=== PATIENT | female | born 1945 | race Caucasian/White ===

== ENCOUNTER 2016-10-29 08:09 | Emergency (ER) | payer OTHER, MEDICARE, BC ==
--- NOTE | 2016-10-29 08:14 | EDM.PDOC ---
ED HPI Trauma - General Chief Complaint: Trauma Stated Complaint: [id number] FELL AT WORK SCRAPED NOSE AND HAND Time Seen by Provider: 10/29/16 08:13 Source: Reports: Patient, Old records, RN, RN notes reviewed History Limitations: Reports: No limitations - History of Present Illness INITIAL COMMENTS - FREE TEXT/NARRATIVE: Arrives by POV with c/o fell at work and scraped nose, and left hand and wrist. Also c/o left rib pain, and has a small bruise on left knee. Denies LOC, N/V, or headache. Denies neck or back pain. Pt states that she slipped or tripped on concrete at work and fell to the ground. Denies any other injury(s). Last tetanus vaccine unknown, but believed to be >10yrs ago. Symptom Onset Date: 10/29/16 Occurred When: just prior to arrival Occurred Where: work Method of Injury: fall Pain/Injury Location: Reports: face, chest, upper extremity, left Consciousness: Reports: no loss of consciousness, remembers incident Associated Symptoms: Reports: no other symptoms Allergies/ADRs: Allergies Anesthetics - Sabrina Type- Parabens [Anesthetics - Sabrina Type] Allergy (Mild, Verified 04/25/16 15:40) Nausea ciprofloxacin [From Cipro] Allergy (Unknown, Verified 04/25/16 15:40) Nausea ciprofloxacin HCl [From Cipro] Allergy (Unknown, Verified 04/25/16 15:40) Nausea erythromycin base [Erythromycin Base] Allergy (Unknown, Verified 04/25/16 15:40) unknown fluticasone propionate [From Flonase] Allergy (Unknown, Verified 04/25/16 15:40) Difficulty Breathing indomethacin Allergy (Unknown, Verified 04/25/16 15:40) unknown Penicillins Allergy (Unknown, Verified 04/25/16 15:40) Hives permethrin [From Elimite] Allergy (Unknown, Verified 04/25/16 15:40) Rash simvastatin [From Zocor] Allergy (Unknown, Verified 04/25/16 15:40) Leg Cramps Sulfa (Sulfonamide Antibiotics) Allergy (Unknown, Verified 04/25/16 15:40) unknown sulfamethoxazole [From Bactrim] Allergy (Unknown, Verified 04/25/16 15:40) unknown trimethoprim [From Bactrim] Allergy (Unknown, Verified 04/25/16 15:40) unknown levofloxacin [From Levaquin] Allergy (Verified 04/25/16 15:40) Chest Pain Anesthetics - Amide Type Adverse Reaction (Mild, Verified 04/25/16 15:40) Nausea Home Medications: Ambulatory Orders Calcium Carbonate [Calcium] 600 mg PO DAILY 08/04/13 [Confirmed 10/29/16] Estrogens, Conjugated [Premarin Vaginal Crm] 1 squirt VAG .2TIMESWEEK 08/04/13 [ Confirmed 10/29/16] Levothyroxine Sodium [Synthroid] 0.88 mcg PO DAILY 08/04/13 [Confirmed 10/29/16] Lutein/Minerals/Vit A,C & E [I-Mary] 1 each PO BID 08/04/13 [Confirmed 10/29/16] Multivitamin [Multi Vitamin Daily] 1 each PO DAILY 08/04/13 [Confirmed 10/29/16] Warfarin [Coumadin] 2.5 mg PO ASDIRECTED 08/04/13 [Confirmed 10/29/16] Warfarin [Coumadin] 5 mg PO ASDIRECTED 08/04/13 [Confirmed 10/29/16] atorvaSTATin [Lipitor] 20 mg PO BEDTIME 08/04/13 [Confirmed 10/29/16] Calcium Carbonate [Tums] 2 tab PO ASDIRECTED PRN 09/26/15 [Confirmed 10/29/16] Amiodarone HCl [Amiodarone HCl] 200 mg PO DAILY 10/29/16 [Confirmed 10/29/16] Sertraline [Zoloft] 25 mg PO DAILY 10/29/16 [Confirmed 10/29/16] Past Medical History HEENT History: Reports: Impaired vision, Macular degeneration Cardiovascular History: Reports: Blood clots/VTE/DVT, High cholesterol Respiratory History: Reports: None Gastrointestinal History: Reports: None, GERD Genitourinary History: Reports: Other (see below) Other Genitourinary History: Blood in urine today 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: Musculoskeletal History: Reports: Arthritis Neurological History: Reports: Migraines, TIA, Vertigo Psychiatric History: Reports: Anxiety, Panic attack Endocrine/Metabolic History: Reports: Hypothyroidism Hematologic History: Reports: None Immunologic History: Reports: None - Infectious Disease History Infectious Disease History: Reports: Chicken pox - Past Surgical History Female Surgical History: Reports: Breast biopsy, Hysterectomy Musculoskeletal Surgical History: Reports: Knee replacement Social & Family History - Family History Family Medical History: Noncontributory - Tobacco Use Smoking Status *Q: Former Smoker Years of Tobacco use: 40 Packs/Tins Daily: 2 Used Tobacco, but Quit: Yes Month Tobacco Last Used: october 2001 Second Hand Smoke Exposure: No - Alcohol Use Days Per Week of Alcohol Use: 1 Number of Drinks Per Day: 6 Total Drinks Per Week: 6 - Recreational Drug Use Recreational Drug Use: No - Living Situation & Occupation Occupation: employed Review of Systems - Review of Systems Review Of Systems: ROS reveals no pertinent complaints other than HPI. ED EXAM, TRAUMA (MAJOR/MULTI) - Physical Exam Exam: See Below Exam Limited By: No limitations General Appearance: alert, WD/WN, no apparent distress Head: normocephalic, facial abrasions (nose). No: scalp lacerations, scalp swelling, scalp abrasions, scalp ecchymosis, scalp hematoma, scalp tenderness, active bleeding, Dunham's Sign, facial lacerations, facial swelling, raccoon eyes Eyes: bilateral eye: EOMI, normal inspection, PERRL Ears: normal external exam, normal canal, hearing grossly normal, normal TMs. No: canal blood, canal discharge, TM blood, TM fluid Nose: No: nasal discharge, active bleeding Throat/Mouth: Normal teeth, Normal gums, Normal oropharynx, Normal voice, No airway compromise, Other (abrasion with bruise to inner lower lip). No: Dental tenderness, Dental trauma Neck: non-tender, full range of motion, normal alignment, normal inspection Cardiovascular: normal peripheral pulses, regular rate, rhythm, no edema Respiratory/Chest: no respiratory distress, lungs clear, normal breath sounds, no accessory muscle use, chest non-tender GI/Abdominal: normal bowel sounds, soft, non tender Back: full range of motion, normal inspection. No: CVA tenderness (R), CVA tenderness (L) Extremities: normal range of motion, pelvis stable, pain with movement (left wrist), tenderness (left wrist), other (small bruise to left anterior knee, skin intact, full ROM, and normal gait). 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, no motor/sensory deficits, alert, normal mood/affect, oriented x 3 Skin: Other (skin tear dorsum of left hand 4cm, multiple superficial abrasions to left hand, wrist, and forearm) Course - Vital Signs Last Recorded V/S: Last Vital Signs Temp 36.6 C 10/29/16 08:13 Pulse 66 10/29/16 08:13 Resp 16 10/29/16 08:13 BP 155/61 H 10/29/16 08:13 Pulse Ox 99 10/29/16 08:13 - Orders/Labs/Meds Orders: Active Orders 24 hr Category Date Time Status Vaccines to be Administered [RC] PER UNIT ROUTINE Care 10/29/16 08:30 Active Ribs 2V wo Chest Lt [CR] Urgent Exams 10/29/16 08:38 Ordered Wrist Comp Min 3V Lt [CR] Urgent Exams 10/29/16 08:36 Ordered Meds: Medications Discontinued Medications Generic Name Dose Route Start Last Admin Trade Name Freq PRN Reason Stop Dose Admin Bacitracin 1 dose 10/29/16 08:36 Bacitracin Oint 1 Gm TOP 10/29/16 08:37 ONETIME ONE Diphtheria/Tetanus/Acell Pertussis 0.5 ml 10/29/16 08:29 10/29/16 08:40 Adacel IM 10/29/16 08:30 0.5 ml .ONCE ONE Administration - Radiology Interpretation Free Text/Narrative:: Xray left wrist: no fracture, see Rad. report. Xray left ribs: no fracture, see Rad. report. CT Results Date: 10/29/16 - Re-Assessments/Exams Free Text/Narrative Re-Assessment/Exam: 10/29/16 09:03 Wounds cleansed, steri strips to left hand skin tear, bacitracin oint. to abrasions by RN. Departure - Departure Time of Disposition: 09:04 Disposition: Home, Self-Care 01 Condition: good Clinical Impression: Encounter for assessment of work-related causation of injury, Fall on same level as cause of accidental injury Abrasion of nose Qualifiers: Encounter type: initial encounter Qualified Code(s): S00.31XA - Abrasion of nose, initial encounter Lip abrasion Qualifiers: Encounter type: initial encounter Qualified Code(s): S00.511A - Abrasion of lip , initial encounter Skin tear of left hand without complication Qualifiers: Encounter type: initial encounter Qualified Code(s): S61.412A - Laceration without foreign body of left hand, initial encounter Abrasion of left upper extremity Qualifiers: Encounter type: initial encounter Qualified Code(s): S40.812A - Abrasion of left upper arm, initial encounter Contusion of left chest wall Qualifiers: Encounter type: initial encounter Qualified Code(s): S20.212A - Contusion of left front wall of thorax, initial encounter Contusion of left knee Qualifiers: Encounter type: initial encounter Qualified Code(s): S80.02XA - Contusion of left knee, initial encounter Instructions: Sterile Tape Wound Care, Abrasion, [id number], Contusion Forms: ED Department Discharge Additional Instructions: Use over the counter Bacitracin Zinc Ointment on skin abrasions. Activity as tolerated. Follow up in clinic in 4 to 5 days for recheck. - My Orders Last 24 Hours: My Active Orders 10/29/16 08:30 Vaccines to be Administered [RC] PER UNIT ROUTINE 10/29/16 08:36 Wrist Comp Min 3V Lt [CR] Urgent 10/29/16 08:38 Ribs 2V wo Chest Lt [CR] Urgent - Assessment/Plan Last 24 Hours: My Active Orders 10/29/16 08:30 Vaccines to be Administered [RC] PER UNIT ROUTINE 10/29/16 08:36 Wrist Comp Min 3V Lt [CR] Urgent 10/29/16 08:38 Ribs 2V wo Chest Lt [CR] Urgent
[2016-10-29] MEDS ORDERED: Diphtheria,Pertussis(Acell),Tetanus Vaccine 0.5 ML SDV IM ONE (08:29)
[2016-10-29 08:33] VITALS: BP 155/61
[2016-10-29] MEDS ORDERED: Bacitracin Oint 1 GM U/D Packet TOP ONE (08:36)
--- NOTE | 2016-10-29 10:50 | CR ---
CLINICAL HISTORY: 71-year-old female with left rib pain. INTERPRETATION: Mild dorsolumbar scoliosis, signs of multilevel disc disease and arthritis of the sp ine. Platelike atelectasis left lung base but no sign of lower left rib fracture, pleural effusion or pne umothorax.
--- NOTE | 2016-10-29 10:50 | CR ---
CLINICAL HISTORY: 71-year-old female with right wrist pain (fall). INTERPRETATION: Subtle lucent line radial styloid with sclerosis suggesting older injury. Chronic reactive arthritic changes first carpometacarpal, first metacarpophalangeal and all MCP/inte rphalangeal/DIP joints typical of arthritis (mild subluxation metacarpal joints). No sign of acute left wrist or hand fracture/dislocation.
== END 2016-10-29 09:30 | disposition home or self-care (01) ==
LOC: DL.ED 08:09
DX: S61.412A Laceration without foreign body of left hand, initial encounter (principal); S20.212A Contusion of left front wall of thorax, initial encounter; S80.02XA Contusion of left knee, initial encounter; S40.812A Abrasion of left upper arm, initial encounter; S00.511A Abrasion of lip, initial encounter; S00.31XA Abrasion of nose, initial encounter; E78.00 Pure hypercholesterolemia, unspecified; K21.9 Gastro-esophageal reflux disease without esophagitis; M19.90 Unspecified osteoarthritis, unspecified site; Z86.73 Personal history of transient ischemic attack (TIA), and cerebral infarction without residual deficits; F41.9 Anxiety disorder, unspecified; E03.9 Hypothyroidism, unspecified; Z23 Encounter for immunization; Z88.1 Allergy status to other antibiotic agents; Z88.0 Allergy status to penicillin; Z88.4 Allergy status to anesthetic agent; Z88.2 Allergy status to sulfonamides; Z88.8 Allergy status to other drugs, medicaments and biological substances; Z90.710 Acquired absence of both cervix and uterus; Z87.891 Personal history of nicotine dependence; W01.0XXA Fall on same level from slipping, tripping and stumbling without subsequent striking against object, initial encounter; Y99.0 Civilian activity done for income or pay
CPT/HCPCS: 71100-LT; 73110-LT; 90471; 90715; 99284

== ENCOUNTER 2016-11-20 21:52 | Emergency (ER) | payer MEDICARE, BC ==
[2016-11-20 22:05] VITALS: BP 153/80
--- NOTE | 2016-11-20 22:12 | EDM.PDOC ---
ED HPI HEADACHE COMPLAINT - General Chief Complaint: Headache Stated Complaint: HEADACHE Time Seen by Provider: 11/20/16 22:05 Source of Information: Reports: Patient History Limitations: Reports: No limitations - History of Present Illness INITIAL COMMENTS - FREE TEXT/NARRATIVE: 71 yo white female c/o frontal type headache and no relieved with [place] Symptom Onset Date: 11/20/16 Symptom Onset Time: 17:00 Timing/Duration: Reports: hour(s): Location: Reports: frontal Quality: Reports: pounding Severity: Reports: moderate Context: Reports: other (Pt. 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) (norco) - Related Data Allergies/ADRs: Allergies Allergy/AdvReac Type Severity Reaction Status Date / Time Anesthetics - Sabrina Type- Allergy Mild Nausea Verified 11/20/16 22:06 Parabens [Anesthetics - Sabrina Type] ciprofloxacin [From Cipro] Allergy Unknown Nausea Verified 11/20/16 22:06 ciprofloxacin HCl Allergy Unknown Nausea Verified 11/20/16 22:06 [From Cipro] erythromycin base Allergy Unknown unknown Verified 11/20/16 22:06 [Erythromycin Base] fluticasone propionate Allergy Unknown Difficulty Verified 11/20/16 22:06 [From Flonase] Breathing indomethacin Allergy Unknown unknown Verified 11/20/16 22:06 Penicillins Allergy Unknown Hives Verified 11/20/16 22:06 permethrin [From Elimite] Allergy Unknown Rash Verified 11/20/16 22:06 simvastatin [From Zocor] Allergy Unknown Leg Cramps Verified 11/20/16 22:06 Sulfa (Sulfonamide Allergy Unknown unknown Verified 11/20/16 22:06 Antibiotics) sulfamethoxazole Allergy Unknown unknown Verified 11/20/16 22:06 [From Bactrim] trimethoprim [From Bactrim] Allergy Unknown unknown Verified 11/20/16 22:06 levofloxacin [From Levaquin] Allergy Chest Pain Verified 11/20/16 22:06 Anesthetics - Amide Type AdvReac Mild Nausea Verified 11/20/16 22:06 Home Meds: Home Meds Calcium Carbonate [Calcium] 600 mg PO BID 08/04/13 [History] Estrogens, Conjugated [Premarin Vaginal Crm] 1 squirt VAG .2TIMESWEEK 08/04/13 [ History] Levothyroxine Sodium [Synthroid] 0.88 mcg PO DAILY 08/04/13 [History] Lutein/Minerals/Vit A,C & E [I-Mary] 1 each PO BID 08/04/13 [History] Multivitamin [Multi Vitamin Daily] 1 each PO DAILY 08/04/13 [History] Warfarin [Coumadin] 2.5 mg PO ASDIRECTED 08/04/13 [History] Warfarin [Coumadin] 5 mg PO ASDIRECTED 08/04/13 [History] atorvaSTATin [Lipitor] 20 mg PO BEDTIME 08/04/13 [History] Amiodarone HCl [Amiodarone HCl] 200 mg PO DAILY 10/29/16 [History] Sertraline [Zoloft] 25 mg PO DAILY 10/29/16 [History] Past Medical History HEENT History: Reports: Impaired vision, Macular degeneration Other HEENT History: wears glasses Cardiovascular History: Reports: Blood clots/VTE/DVT, High cholesterol Respiratory History: Reports: None Gastrointestinal History: Reports: None, GERD Genitourinary History: Reports: Other (see below) Other Genitourinary History: 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: Musculoskeletal History: Reports: Arthritis Neurological History: Reports: Migraines, TIA, Vertigo Psychiatric History: Reports: Anxiety, Panic attack Endocrine/Metabolic History: Reports: Hypothyroidism Hematologic History: Reports: None Immunologic History: Reports: None - Infectious Disease History Infectious Disease History: Reports: Chicken pox - Past Surgical History Female Surgical History: Reports: Breast biopsy, Hysterectomy Musculoskeletal Surgical History: Reports: Knee replacement Social & Family History - Family History Family Medical History: Noncontributory - Tobacco Use Smoking Status *Q: Former Smoker Years of Tobacco use: 40 Packs/Tins Daily: 2 Used Tobacco, but Quit: Yes Month Tobacco Last Used: october 2001 Second Hand Smoke Exposure: No - Caffeine Use Caffeine Use: Reports: None - Alcohol Use Days Per Week of Alcohol Use: 1 Number of Drinks Per Day: 6 Total Drinks Per Week: 6 - Recreational Drug Use Recreational Drug Use: No - Living Situation & Occupation Occupation: employed ED ROS GENERAL - Review of Systems Review Of Systems: See Below Constitutional: Reports: no symptoms HEENT: Reports: No symptoms Respiratory: Reports: No Symptoms Cardiovascular: Reports: No symptoms Endocrine: Reports: no symptoms GI/Abdominal: Reports: No symptoms : Reports: no symptoms Musculoskeletal: Reports: no symptoms Skin: Reports: no symptoms Neurological: Reports: Headache (frontal) Psychiatric: Reports: No symptoms Hematologic/Lymphatic: Reports: no symptoms Immunologic: Reports: no symptoms - Physical Exam Exam: See Below Exam Limited By: No limitations General Appearance: alert, WD/WN, no apparent distress, obese Eye Exam: bilateral eye: PERRL Ears: normal external exam Nose: normal inspection Throat/Mouth: Normal inspection, Normal lips Head Exam: atraumatic, normocephalic Neck: normal inspection, supple, non-tender, full range of motion Respiratory/Chest: no respiratory distress, lungs clear, normal breath sounds Cardiovascular: normal peripheral pulses, regular rate, rhythm GI/Abdominal: normal bowel sounds, soft, non tender (Female) Exam: Normal external exam Neuro Exam (Abbreviated): alert, oriented, CN II-XII intact, normal cognition, normal gait, normal reflexes Back Exam: normal inspection, full range of motion Extremities: normal inspection, normal range of motion, non-tender Psychiatric: normal affect, normal mood Skin Exam: Warm, Dry, Intact, Normal color Course - Vital Signs Last Recorded V/S: Last Vital Signs Temp 36.4 C 11/20/16 21:58 Pulse 65 11/20/16 21:58 Resp 16 11/20/16 21:58 BP 153/80 H 11/20/16 21:58 Pulse Ox 100 11/20/16 21:58 - Orders/Labs/Meds Meds: Medications Discontinued Medications Generic Name Dose Route Start Last Admin Trade Name Brettq PRN Reason Stop Dose Admin Cyclobenzaprine HCl 10 mg 11/20/16 22:16 11/20/16 22:20 Flexeril PO 11/20/16 22:17 10 mg ONETIME ONE Administration Ketorolac Tromethamine 10 mg 11/20/16 22:16 11/20/16 22:20 Toradol PO 11/20/16 22:17 10 mg ONETIME ONE Administration Departure - Departure Time of Disposition: 22:50 Disposition: Home, Self-Care 01 Condition: good Clinical Impression: Post-concussion headache Forms: ED Department Discharge Additional Instructions: Rest Try taking FIORICET Tab 1 every 4-6 hours as needed # 30 F/U w/ PCP
[2016-11-20] MEDS ORDERED: Cyclobenzaprine 10 MG Tab PO ONE (22:16)
[2016-11-20] MEDS ORDERED: Ketorolac 10 MG Tab PO ONE (22:16)
== END 2016-11-20 23:01 | disposition home or self-care (01) ==
LOC: DL.ED 21:52
DX: G44.309 Post-traumatic headache, unspecified, not intractable (principal); E78.00 Pure hypercholesterolemia, unspecified; K21.9 Gastro-esophageal reflux disease without esophagitis; G43.909 Migraine, unspecified, not intractable, without status migrainosus; M19.90 Unspecified osteoarthritis, unspecified site; E03.9 Hypothyroidism, unspecified; Z90.710 Acquired absence of both cervix and uterus; Z87.891 Personal history of nicotine dependence; Z88.8 Allergy status to other drugs, medicaments and biological substances; Z88.1 Allergy status to other antibiotic agents; Z88.0 Allergy status to penicillin; Z88.2 Allergy status to sulfonamides; Z79.01 Long term (current) use of anticoagulants; Z79.899 Other long term (current) drug therapy; W19.XXXD Unspecified fall, subsequent encounter
CPT/HCPCS: 99283; A9270

== ENCOUNTER 2017-05-27 12:09 | Emergency (ER) | payer MEDICARE, BC ==
[2017-05-27] MEDS ORDERED: Ondansetron 4 MG Tab.DIS PO ONE (12:46)
--- NOTE | 2017-05-27 12:57 | CR ---
Clinical history: 71-year-old female injured fall. Interpretation: AP (internal/external rotation) right humerus suggests rotator cuff impingement (elev ated humeral head). No long bone fracture right humerus. No dislocation right shoulder or elbow. (Subtle deformity distal clavicle i.e. old trauma) No foreign bodies. Right lung apex clear.
--- NOTE | 2017-05-27 13:02 | CT ---
CLINICAL HISTORY: 71-year-old female injured in fall. SCAN TECHNIQUE: Volume acquisition of data from an emergency unenhanced CT scan of the head and brain obtained with the patient lying supine on the Siemens multislice scanner [place], [place]. All data archived in the PACS system for storage, reformatting and study (bone/ brain windows). INTERPRETATION: Subtle asymmetric extracranial soft tissue swelling over the convexity on the left. Uniformly thick bony calvarium without sign of skull fracture, underlying brain contusion or epidural /subdural hematoma. Symmetric clear pneumatization of the mastoid and paranasal sinuses. Nasal septum is straight in the midline. Symmetric lewis-white matter pattern with underlying mirror-image normal ventricular system. No cerebr al cortical infarcts. No sign of acute intracerebral/intraventricular/subarachnoid bleed. No hydrocephalus. Cerebellum and brainstem unremarkable. CONCLUSION: Mild extracranial soft tissue contusion, left parietal convexity posteriorly. No sign of skull fracture or closed head injury.
[2017-05-27 13:15] LABS: CHLORIDE,CL 101 mmol/L (101-111); SODIUM,NA 137 mmol/L (135-145)
--- NOTE | 2017-05-27 13:43 | EDM.PDOC ---
ED HPI GENERAL MEDICAL PROBLEM - General Chief Complaint: Trauma Stated Complaint: MICKY FELL AT 08:15 AM Time Seen by Provider: 05/27/17 12:40 Source of Information: Reports: Patient, Family, RN, RN Notes Reviewed History Limitations: Reports: No Limitations - History of Present Illness INITIAL COMMENTS - FREE TEXT/NARRATIVE: Patient presents to the ER with family. She states she tripped over her cat this morning about 0815 and fell hard on her right shoulder and hit her head. She states she had Right shoulder surgery in April, and last week her INR was 7. A trauma code was called. The patient had ambulated in and was placed in a bed. Patient states she never lost consciousness, but that her pain is a 4 on the right side of her head and her right shoulder. She states she has a headache and is nauseated at this time. She denies vomiting, or any further pain. Onset: Today, Sudden Location: Reports: Head, Upper Extremity, Right Quality: Reports: Throbbing Severity: Moderate Improves with: Reports: None Worsens with: Reports: None Associated Symptoms: Reports: Headaches, Nausea/Vomiting - Related Data Allergies Allergy/AdvReac Type Severity Reaction Status Date / Time Anesthetics - Sabrina Type- Allergy Mild Nausea Verified 11/20/16 22:06 Parabens [Anesthetics - Sabrina Type] ciprofloxacin [From Cipro] Allergy Unknown Nausea Verified 11/20/16 22:06 ciprofloxacin HCl Allergy Unknown Nausea Verified 11/20/16 22:06 [From Cipro] erythromycin base Allergy Unknown unknown Verified 11/20/16 22:06 [Erythromycin Base] fluticasone propionate Allergy Unknown Difficulty Verified 11/20/16 22:06 [From Flonase] Breathing indomethacin Allergy Unknown unknown Verified 11/20/16 22:06 Penicillins Allergy Unknown Hives Verified 11/20/16 22:06 permethrin [From Elimite] Allergy Unknown Rash Verified 11/20/16 22:06 simvastatin [From Zocor] Allergy Unknown Leg Cramps Verified 11/20/16 22:06 Sulfa (Sulfonamide Allergy Unknown unknown Verified 11/20/16 22:06 Antibiotics) sulfamethoxazole Allergy Unknown unknown Verified 11/20/16 22:06 [From Bactrim] trimethoprim [From Bactrim] Allergy Unknown unknown Verified 11/20/16 22:06 levofloxacin [From Levaquin] Allergy Chest Pain Verified 11/20/16 22:06 Anesthetics - Amide Type AdvReac Mild Nausea Verified 11/20/16 22:06 Home Meds: Home Meds Calcium Carbonate [Calcium] 600 mg PO BID 08/04/13 [History] Estrogens, Conjugated [Premarin Vaginal Crm] 1 squirt VAG .2TIMESWEEK 08/04/13 [ History] Levothyroxine Sodium [Synthroid] 0.88 mcg PO DAILY 08/04/13 [History] Lutein/Minerals/Vit A,C & E [I-Mary] 1 each PO BID 08/04/13 [History] Multivitamin [Multi Vitamin Daily] 1 each PO DAILY 08/04/13 [History] Warfarin [Coumadin] 2.5 mg PO ASDIRECTED 08/04/13 [History] Warfarin [Coumadin] 5 mg PO ASDIRECTED 08/04/13 [History] atorvaSTATin [Lipitor] 20 mg PO BEDTIME 08/04/13 [History] Amiodarone HCl [Amiodarone HCl] 200 mg PO DAILY 10/29/16 [History] Sertraline [Zoloft] 25 mg PO DAILY 10/29/16 [History] Past Medical History HEENT History: Reports: Impaired Vision, Macular Degeneration Other HEENT History: wears glasses Cardiovascular History: Reports: Blood Clots/VTE/DVT, High Cholesterol Respiratory History: Reports: None Gastrointestinal History: Reports: None, GERD Genitourinary History: Reports: Other (See Below) Other Genitourinary History: Blood in urine today 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: Musculoskeletal History: Reports: Arthritis Neurological History: Reports: Migraines, TIA, Vertigo Psychiatric History: Reports: Anxiety, Panic Attack Endocrine/Metabolic History: Reports: Hypothyroidism Hematologic History: Reports: None Immunologic History: Reports: None - Infectious Disease History Infectious Disease History: Reports: Chicken Pox - Past Surgical History Female Surgical History: Reports: Breast Biopsy, Hysterectomy Musculoskeletal Surgical History: Reports: Knee Replacement Social & Family History - Family History Family Medical History: Noncontributory - Tobacco Use Smoking Status *Q: Former Smoker Years of Tobacco use: 40 Packs/Tins Daily: 2 Used Tobacco, but Quit: Yes Month Tobacco Last Used: october 2001 Second Hand Smoke Exposure: No - Caffeine Use Caffeine Use: Reports: None - Alcohol Use Days Per Week of Alcohol Use: 1 Number of Drinks Per Day: 6 Total Drinks Per Week: 6 - Recreational Drug Use Recreational Drug Use: No - Living Situation & Occupation Occupation: Employed Review of Systems - Review of Systems Review Of Systems: ROS reveals no pertinent complaints other than HPI. ED EXAM, GENERAL - Physical Exam Exam: See Below Exam Limited By: No Limitations General Appearance: Alert, WD/WN, No Apparent Distress Eye Exam: Bilateral Eye: Normal Inspection, PERRL Ears: Normal External Exam, Normal Canal, Hearing Grossly Normal, Normal TMs Ear Exam: Bilateral Ear: Auricle Normal, Canal Normal, TM normal Nose: Normal Inspection, Normal Mucosa, No Blood Throat/Mouth: Normal Inspection, Normal Lips, Normal Teeth, Normal Gums, Normal Oropharynx, Normal Voice, No Airway Compromise Head: Other (Contusion to the right side of the head, approximately 8x8cm. ) Neck: Normal Inspection, Supple, Non-Tender, Full Range of Motion Respiratory/Chest: No Respiratory Distress, Lungs Clear, Normal Breath Sounds, No Accessory Muscle Use, Chest Non-Tender Cardiovascular: Normal Peripheral Pulses, Regular Rate, Rhythm, No Edema, No Gallop, No JVD, No Murmur, No Rub Peripheral Pulses: 2+: Radial (L), Radial (R) GI/Abdominal: Normal Bowel Sounds, Soft, Non-Tender, No Organomegaly, No Distention, No Abnormal Bruit, No Mass (Female) Exam: Deferred Rectal (Female) Exam: Deferred Back Exam: Normal Inspection, Full Range of Motion, NT Extremities: Arm Pain, Limited Range of Motion, Other (right shoulder, upper arm pain. Bruising on right humerus and shoulder. ) Neurological: Alert, Oriented, CN II-XII Intact, Normal Cognition, Normal Gait, Normal Reflexes, No Motor/Sensory Deficits Psychiatric: Normal Affect, Normal Mood Skin Exam: Warm, Dry, Intact, Normal Color, No Rash Lymphatic: No Adenopathy Course - Orders/Labs/Meds Labs: Laboratory Tests 05/27/17 05/27/17 05/27/17 Range/Units 12:48 12:48 12:48 WBC 9.1 (5.0-10.0) 10^3/uL RBC 4.07 L (4.2-5.4) 10^6/uL Hgb 12.9 (12.0-16.0) g/dL Hct 41.6 (37.0-47.0) % MCV 102.2 H (80-100) fL MCH 31.7 (27.0-34.0) pg MCHC 31.0 L (33.0-35.0) g/dL Plt Count 351 (150-450) 10^3/uL Neut % (Auto) 77.7 H (42.2-75.2) % Lymph % (Auto) 11.9 L (20.5-50.1) % [place] % (Auto) 9.3 H (2-8) % Eos % (Auto) 0.9 L (1.0-3.0) % Baso % (Auto) 0.2 (0.0-1.0) % PT 24.3 H (9.0-12.0) SEC INR 2.4 H (0.9-1.2) Sodium 137 (135-145) mmol/L Potassium 4.0 (3.6-5.0) mmol/L Chloride 101 (101-111) mmol/L Carbon Dioxide 28.0 (21.0-31.0) mmol/L Anion Gap 12.0 BUN 17 (7-18) mg/dL Creatinine 0.9 (0.6-1.3) mg/dL Est Cr Clr Drug Dosing TNP Estimated GFR (MDRD) > 60 BUN/Creatinine Ratio 18.88 Glucose 115 H (74-105) mg/dL Calcium 8.8 (8.4-10.2) mg/dl Total Bilirubin 0.7 (0.2-1.0) mg/dL AST 30 (10-42) IU/L ALT 22 (10-60) IU/L Alkaline Phosphatase 59 (42-121) IU/L Total Protein 6.8 (6.7-8.2) g/dl Albumin 3.8 (3.2-5.5) g/dl Globulin 3.0 Albumin/Globulin Ratio 1.27 Meds: Medications Discontinued Medications Generic Name Dose Route Start Last Admin Trade Name Freq PRN Reason Stop Dose Admin Ondansetron HCl 4 mg 05/27/17 12:46 05/27/17 12:57 Zofran Odt PO 05/27/17 12:47 4 mg ONETIME ONE Administration - Radiology Interpretation Free Text/Narrative:: Head CT without contrast: Mild extracranial soft tissue contusion, left parietal convexity posteriorly. No sign of skull fracture or closed head injury. Right humerus/complete shoulder: AP (internal/external rotation) right humerus suggests rotator cuff impingement (elevated humeral head). No long bone fracture right humerus. No dislocation right shoulder or elbow (subtle deformity distal clavicle i.e. old trauma). No foreign bodies. Right lung apex clear. See rad report CT Results Date: 05/27/17 CT Results Time: 12:22 Departure - Departure Time of Disposition: 13:44 Disposition: Home, Self-Care 01 Condition: Fair Clinical Impression: Contusion Qualifiers: Encounter type: initial encounter Contusion area: head Contusion of head detail : scalp Qualified Code(s): S00.03XA - Contusion of scalp, initial encounter - Discharge Information Instructions: Contusion, [id number] Forms: ED Department Discharge Additional Instructions: Follow up with ortho for shoulder. Follow up with your primary care provider in 2-3 days for trauma follow up. Tylenol as directed for pain.
== END 2017-05-27 14:15 | disposition home or self-care (01) ==
LOC: DL.ED 12:09
DX: S00.03XA Contusion of scalp, initial encounter (principal); E78.00 Pure hypercholesterolemia, unspecified; K21.9 Gastro-esophageal reflux disease without esophagitis; F41.0 Panic disorder [episodic paroxysmal anxiety]; E03.9 Hypothyroidism, unspecified; Z86.73 Personal history of transient ischemic attack (TIA), and cerebral infarction without residual deficits; Z86.718 Personal history of other venous thrombosis and embolism; Z87.891 Personal history of nicotine dependence; Z90.710 Acquired absence of both cervix and uterus; Z96.659 Presence of unspecified artificial knee joint; Z79.01 Long term (current) use of anticoagulants; Z79.899 Other long term (current) drug therapy; Z88.0 Allergy status to penicillin; Z88.2 Allergy status to sulfonamides; Z88.1 Allergy status to other antibiotic agents; Z88.8 Allergy status to other drugs, medicaments and biological substances; W01.0XXA Fall on same level from slipping, tripping and stumbling without subsequent striking against object, initial encounter
CPT/HCPCS: 36415; 70450; 73060; 80053; 85025; 85610; 99284; A9270; 99283

== ENCOUNTER 2017-06-10 14:42 | Emergency (ER) | payer MEDICARE, BC ==
[2017-06-10 14:54] VITALS: BP 137/49
--- NOTE | 2017-06-10 15:22 | EDM.PDOC ---
ED HPI GENERAL MEDICAL PROBLEM - General Chief Complaint: Laceration Stated Complaint: FINGER CUT AND WONT STOP BLEEDING, [id number] Time Seen by Provider: 06/10/17 15:05 Source of Information: Reports: Patient, RN History Limitations: Reports: No Limitations - History of Present Illness INITIAL COMMENTS - FREE TEXT/NARRATIVE: Patient presents to ER with a 0.8 cm laceration to the left pointer finger. She states she was cutting a tomato and accidentally sliced the finger as well. She states she has trouble with her INR being elevated and cannot get the finger to stop bleeding. SHe states she has been off her anticoagulants for about 3 days and will be having blood work done today at the clinic. She denies any further problems today. Onset: Today, Sudden - Related Data Allergies Allergy/AdvReac Type Severity Reaction Status Date / Time Anesthetics - Sabrina Type- Allergy Mild Nausea Verified 06/10/17 14:52 Parabens [Anesthetics - Sabrina Type] ciprofloxacin [From Cipro] Allergy Unknown Nausea Verified 06/10/17 14:52 ciprofloxacin HCl Allergy Unknown Nausea Verified 06/10/17 14:52 [From Cipro] erythromycin base Allergy Unknown unknown Verified 06/10/17 14:52 [Erythromycin Base] fluticasone propionate Allergy Unknown Difficulty Verified 06/10/17 14:52 [From Flonase] Breathing indomethacin Allergy Unknown unknown Verified 06/10/17 14:52 Penicillins Allergy Unknown Hives Verified 06/10/17 14:52 permethrin [From Elimite] Allergy Unknown Rash Verified 06/10/17 14:52 simvastatin [From Zocor] Allergy Unknown Leg Cramps Verified 06/10/17 14:52 Sulfa (Sulfonamide Allergy Unknown unknown Verified 06/10/17 14:52 Antibiotics) sulfamethoxazole Allergy Unknown unknown Verified 06/10/17 14:52 [From Bactrim] trimethoprim [From Bactrim] Allergy Unknown unknown Verified 06/10/17 14:52 levofloxacin [From Levaquin] Allergy Chest Pain Verified 06/10/17 14:52 Anesthetics - Amide Type AdvReac Mild Nausea Verified 06/10/17 14:52 Home Meds: Home Meds Calcium Carbonate [Calcium] 600 mg PO BID 08/04/13 [History] Estrogens, Conjugated [Premarin Vaginal Crm] 1 squirt VAG .2TIMESWEEK 08/04/13 [ History] Levothyroxine Sodium [Synthroid] 0.88 mcg PO DAILY 08/04/13 [History] Lutein/Minerals/Vit A,C & E [I-Mary] 1 each PO BID 08/04/13 [History] Multivitamin [Multi Vitamin Daily] 1 each PO DAILY 08/04/13 [History] Warfarin [Coumadin] 2.5 mg PO ASDIRECTED 08/04/13 [History] Warfarin [Coumadin] 5 mg PO ASDIRECTED 08/04/13 [History] atorvaSTATin [Lipitor] 20 mg PO BEDTIME 08/04/13 [History] Amiodarone HCl [Amiodarone HCl] 200 mg PO DAILY 10/29/16 [History] Sertraline [Zoloft] 25 mg PO DAILY 10/29/16 [History] Past Medical History HEENT History: Reports: Impaired Vision, Macular Degeneration Other HEENT History: wears glasses Cardiovascular History: Reports: Blood Clots/VTE/DVT, High Cholesterol Respiratory History: Reports: None Gastrointestinal History: Reports: None, GERD Genitourinary History: Reports: Other (See Below) Other Genitourinary History: Blood in urine today 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: Musculoskeletal History: Reports: Arthritis Neurological History: Reports: Migraines, TIA, Vertigo Psychiatric History: Reports: Anxiety, Panic Attack Endocrine/Metabolic History: Reports: Hypothyroidism Hematologic History: Reports: None Immunologic History: Reports: None - Infectious Disease History Infectious Disease History: Reports: Chicken Pox - Past Surgical History Female Surgical History: Reports: Breast Biopsy, Hysterectomy Musculoskeletal Surgical History: Reports: Knee Replacement Social & Family History - Family History Family Medical History: Noncontributory - Tobacco Use Smoking Status *Q: Never Smoker Years of Tobacco use: 40 Packs/Tins Daily: 2 Used Tobacco, but Quit: Yes Month Tobacco Last Used: october 2001 Second Hand Smoke Exposure: No - Caffeine Use Caffeine Use: Reports: None - Alcohol Use Days Per Week of Alcohol Use: 1 Number of Drinks Per Day: 6 Total Drinks Per Week: 6 - Recreational Drug Use Recreational Drug Use: No - Living Situation & Occupation Occupation: Employed ED ROS GENERAL - Review of Systems Review Of Systems: ROS reveals no pertinent complaints other than HPI. ED EXAM, SKIN/RASH Exam: See Below Exam Limited By: No Limitations General Appearance: Alert, WD/WN, No Apparent Distress Eye Exam: Bilateral Eye: Normal Inspection Ears: Normal External Exam, Hearing Grossly Normal Nose: Normal Inspection Throat/Mouth: Normal Inspection, Normal Voice, No Airway Compromise Head: Atraumatic, Normocephalic Neck: Normal Inspection, Supple, Non-Tender, Full Range of Motion Respiratory/Chest: No Respiratory Distress, Lungs Clear, Normal Breath Sounds, No Accessory Muscle Use, Chest Non-Tender Cardiovascular: Normal Peripheral Pulses, Regular Rate, Rhythm, No Edema, No Gallop, No JVD, No Murmur, No Rub Peripheral Pulses: 2+: Radial (L), Radial (R) GI/Abdominal: Normal Bowel Sounds, Soft, Non-Tender (Female) Exam: Deferred Rectal (Female) Exam: Deferred Back Exam: Normal Inspection, Full Range of Motion Extremities: Normal Inspection, Normal Range of Motion, Non-Tender, No Pedal Edema, Normal Capillary Refill Neurological: Alert, Oriented, Normal Cognition, Normal Gait, No Motor/Sensory Deficits Psychiatric: Normal Affect, Normal Mood Skin: Warm, Dry, Normal Color, No Rash, Other (0.8cm laceration, left pointer finger tip\) Location, Skin: Upper Extremity, Left Lymphatic: No Adenopathy ED SKIN PROCEDURES - Laceration/Wound Repair Left Upper Distal Ventral Finger Lac/Wound length In cm: 0.8 Appearance: Superficial Distal NVT: Neuro & Vascular Intact, No Tendon Injury Skin Prep: Chlorhexidine (Hibiciens) Closed with: Dermabond Sterile Dressing Applied: Nurse Tetanus Status Addressed: Yes Complications: No Course - Vital Signs Last Recorded V/S: Last Vital Signs Temp 97.8 F 06/10/17 14:52 Pulse 64 06/10/17 14:52 Resp 18 06/10/17 14:52 BP 137/49 L 06/10/17 14:52 Pulse Ox 98 06/10/17 14:52 Departure - Departure Time of Disposition: 15:21 Disposition: Home, Self-Care 01 Condition: Good Clinical Impression: Laceration - Discharge Information Instructions: Laceration Care, Adult, [id number], Stitches, Leland, or Adhesive Wound Closure, [id number] Referrals: Andrew Cabrera MD [Primary Care Provider] - Forms: ED Department Discharge Additional Instructions: Keep wound clean and dry. Follow up at your primary care facility as needed.
== END 2017-06-10 15:29 | disposition home or self-care (01) ==
LOC: DL.ED 14:42
DX: S61.211A Laceration without foreign body of left index finger without damage to nail, initial encounter (principal); M19.90 Unspecified osteoarthritis, unspecified site; E78.00 Pure hypercholesterolemia, unspecified; E03.9 Hypothyroidism, unspecified; W45.8XXA Other foreign body or object entering through skin, initial encounter; Z88.1 Allergy status to other antibiotic agents; Z88.0 Allergy status to penicillin; Z88.8 Allergy status to other drugs, medicaments and biological substances; Z88.2 Allergy status to sulfonamides; Z79.899 Other long term (current) drug therapy; Z79.01 Long term (current) use of anticoagulants
CPT/HCPCS: 12001; 99282; 99283

== ENCOUNTER 2017-07-17 06:53 | Day surgery (SDC) | payer MEDICARE, BC ==
[2017-07-17] MEDS ORDERED: Sodium Chloride 0.9% 10 ML Syringe IV ONE (06:54)
[2017-07-17] MEDS ORDERED: Midazolam 1 MG/ML 2 ML SDV IV ONE (06:54)
[2017-07-17] MEDS ORDERED: Dexamethasone 4 MG/ML SDV IV ONE (06:54)
[2017-07-17] MEDS ORDERED: Phenylephrine 10% Ophth Soln 5 ML Bot EYELF ONE (07:00)
[2017-07-17] MEDS ORDERED: Moxifloxacin 0.5% Ophth Soln 3 ML Bottle EYELF ONE (07:00)
[2017-07-17] MEDS ORDERED: Proparacaine 0.5% Ophth Soln 15 ML Bottle EYELF ONE (07:00)
[2017-07-17] MEDS ORDERED: Cataract Ophth Solution EYELF ONE (07:00)
[2017-07-17] MEDS ORDERED: Povidone-Iodine 5% Sterile Ophth Soln 30 ML Bottle EYELF ONE ×2 (07:00→08:05)
[2017-07-17] MEDS ORDERED: Sodium Chloride 0.9% 10 ML Syringe FLUSH SCH (07:00)
[2017-07-17] MEDS ORDERED: Timolol Maleate 0.5% Ophth Soln 5 ML Bottle EYELF ONE (07:27)
[2017-07-17] MEDS ORDERED: Lidocaine 1% 30 ML SDV ONE (08:05)
[2017-07-17] MEDS ORDERED: Tetracaine HCl/PF 0.5% 4 ML Bottle EYELF ONE (08:06)
[2017-07-17] MEDS ORDERED: Apraclonidine 0.5% Ophth Soln 5 ML Bot EYELF ONE (08:06)
[2017-07-17] MEDS ORDERED: Diclofenac Sodium 0.1% Ophth Soln 5 ML Bottle EYELF ONE (08:06)
[2017-07-17] MEDS ORDERED: Balanced Salt Solution Ophth Irrig 500 ML Bottle IOCULAR ONE (08:08)
[2017-07-17] MEDS ORDERED: Vancomycin 500 MG SDV EYELF ONE (08:08)
[2017-07-17] MEDS ORDERED: Chondroitin Sulfate/Hyaluronate Sodium Ophth Inj 0.75 ML Syringe EYELF ONE (08:08)
[2017-07-17] MEDS ORDERED: Dexamethasone/Tobramycin 0.1-0.3% Ophth Oint 3.5 GM Tube EYELF ONE (08:08)
--- NOTE | 2017-07-17 08:53 | OR ---
DATE: PREOPERATIVE DIAGNOSIS: cataract, left eye. POSTOPERATIVE DIAGNOSIS: cataract, left eye. PROCEDURE: Extracapsular cataract extraction with intraocular lens implant, left eye. ANESTHESIA: Topical/local MAC. COMPLICATIONS: None. INDICATION: Ms. Sutton was seen in the clinic. She has had complaints of a slow progressive decrease in vision. Clinical examination reveals visually significant mixed cataract. I explained options. I offered cataract surgery, and I explained risks including but not limited to, infection, retinal detachment, loss of vision, need for additional surgery, and risks associated with anesthesia. We discussed implant options. She has requested a Symfony Toric implant. I did explain the increased potential for glare, halo, and dysphotopsia. I also explained that she may still require glasses for some activities. She is symptomatic and voiced an understanding. She requested surgery with the Symfony implant. OPERATIVE DESCRIPTION: After informed consent was obtained and the risks, benefits, and alternatives were explained, the patient was brought to the operative suite and topical anesthesia was administered. The patient was then prepped and draped in the sterile fashion and attention was placed on the left eye. A sterile lid speculum was placed into the left eye to allow operative exposure. A full-thickness paracentesis was made in the temporal portion of the operative eye. Preservative-free lidocaine 0.1 mL was injected into the anterior chamber followed by viscoelastic. A full-thickness corneal incision was then made into the anterior chamber. A bent needle cystotome was used to create a small jona in the anterior capsule. The capsulorrhexis forceps was then used to create a 360-degree curvilinear capsulorrhexis. The nucleus was then removed using a phacoemulsification handpiece and the remaining cortical material was then removed with irrigation and aspiration handpiece. Following removal of the cortical material, the capsular bag was then inspected and noted to be free of any holes or tears. Viscoelastic was then injected into the capsular bag and the intraocular lens was inserted into the capsular bag. The implant was oriented to correspond with preoperative corneal calvillo made with the patient in the upright position. The viscoelastic material was then removed from both the anterior and posterior chambers and from behind the IOL. The lens and capsular bag were then reinspected. The IOL was well centered and the capsular bag intact. The wound and paracentesis sites were inspected and hydrated with balanced saline solution. Both were found to be self-sealing. The intraocular pressure was assessed digitally and found to be within normal range. A good red reflex was noted at the completion of the procedure. No complications occurred during the operation. At the completion of the procedure, Maxitrol, Voltaren, and Iopidine drops were placed into the operative eye. A sterile eye shield was placed over the operative eye and the patient was transported to the postoperative recovery area having tolerated the procedure well. Postoperative instructions were given along with a postoperative appointment. The patient was advised to call with any questions or concerns. [facility] /[id number]
[2017-07-17 10:02] VITALS: BP 141/52
== END 2017-07-17 09:15 | disposition home or self-care (01) ==
LOC: DL.SDS 06:53
PROVIDERS: ATTEND Ophthalmology
DX: H26.8 Other specified cataract (principal); F41.9 Anxiety disorder, unspecified; F32.9 Major depressive disorder, single episode, unspecified; K21.9 Gastro-esophageal reflux disease without esophagitis; E78.5 Hyperlipidemia, unspecified; E03.9 Hypothyroidism, unspecified; Z90.710 Acquired absence of both cervix and uterus; Z96.653 Presence of artificial knee joint, bilateral; Z87.891 Personal history of nicotine dependence; Z86.718 Personal history of other venous thrombosis and embolism; Z79.01 Long term (current) use of anticoagulants; Z88.0 Allergy status to penicillin; Z88.1 Allergy status to other antibiotic agents; Z88.8 Allergy status to other drugs, medicaments and biological substances
CPT/HCPCS: 00142; 66984; A9270; J1100; J2250; J3370; J7050; V2787

== ENCOUNTER 2017-08-14 06:40 | Day surgery (SDC) | payer MEDICARE, BC ==
[2017-08-14] MEDS ORDERED: Dexamethasone 4 MG/ML SDV IV ONE (06:41)
[2017-08-14] MEDS ORDERED: Midazolam 1 MG/ML 2 ML SDV IV ONE (06:41)
[2017-08-14] MEDS ORDERED: Sodium Chloride 0.9% 10 ML Syringe IV ONE (06:41)
[2017-08-14] MEDS ORDERED: Ondansetron 4 MG/2 ML SDV IVPUSH PRN (07:00)
[2017-08-14] MEDS ORDERED: Timolol Maleate 0.5% Ophth Soln 5 ML Bottle EYERT ONE (07:00)
[2017-08-14] MEDS ORDERED: Acetaminophen 325 MG Tab PO PRN (07:00)
[2017-08-14] MEDS ORDERED: Sodium Chloride 0.9% 10 ML Syringe FLUSH PRN (07:00)
[2017-08-14] MEDS ORDERED: Proparacaine 0.5% Ophth Soln 15 ML Bottle EYERT ONE (07:00)
[2017-08-14] MEDS ORDERED: Cataract Ophth Solution EYERT ONE (07:00)
[2017-08-14] MEDS ORDERED: Povidone-Iodine 5% Sterile Ophth Soln 30 ML Bottle EYERT ONE ×2 (07:00→09:33)
[2017-08-14] MEDS ORDERED: Moxifloxacin 0.5% Ophth Soln 3 ML Bottle EYERT ONE (07:00)
[2017-08-14] MEDS ORDERED: Phenylephrine 10% Ophth Soln 5 ML Bot EYERT PRN (07:00)
[2017-08-14] MEDS ORDERED: Phenylephrine 10% Ophth Soln 5 ML Bot EYERT ONE (07:00)
[2017-08-14] MEDS ORDERED: Tetracaine HCl/PF 0.5% 4 ML Bottle EYERT ONE (09:34)
[2017-08-14] MEDS ORDERED: Diclofenac Sodium 0.1% Ophth Soln 5 ML Bottle EYERT ONE (09:34)
[2017-08-14] MEDS ORDERED: Lidocaine 1% 30 ML SDV ONE (09:35)
[2017-08-14] MEDS ORDERED: Dexamethasone/Tobramycin 0.1-0.3% Ophth Oint 3.5 GM Tube EYERT ONE (09:35)
[2017-08-14] MEDS ORDERED: Apraclonidine 0.5% Ophth Soln 5 ML Bot EYERT ONE (09:35)
[2017-08-14] MEDS ORDERED: Vancomycin 500 MG SDV EYERT ONE (09:36)
[2017-08-14] MEDS ORDERED: Balanced Salt Solution Ophth Irrig 500 ML Bottle IOCULAR ONE (09:37)
[2017-08-14] MEDS ORDERED: Chondroitin Sulfate/Hyaluronate Sodium Ophth Inj 0.75 ML Syringe EYERT ONE (09:37)
[2017-08-14 12:59] VITALS: BP 116/51
--- NOTE | 2017-08-14 12:59 | OR ---
DATE: 08/14/2017 PREOPERATIVE DIAGNOSIS: Cataract, right eye. POSTOPERATIVE DIAGNOSIS: Cataract, right eye. PROCEDURE: Extracapsular cataract extraction with intraocular lens implant, right eye. ANESTHESIA: Topical/local MAC. COMPLICATIONS: None. INDICATION: Ms. Sutton was seen in the clinic. She has complained of a slow progressive decrease in vision. Clinical examination reveals visually significant nuclear sclerotic cataract. She is symptomatic and requested cataract surgery. I explained options, offered cataract surgery, and I explained risks including, but not limited to, infection, retinal detachment, loss of vision, need for additional surgery, and risks associated with anesthesia. We discussed implant options. She has requested Symfony toric implant. I did explain the increased potential for glare, halo, and dysphotopsia, also explained that she may still require glasses for some activities. She voiced an understanding with respect to risks and limitations and wished to proceed. OPERATIVE DESCRIPTION: After informed consent was obtained and the risks, benefits, and alternatives were explained, the patient was brought to the operative suite and topical anesthesia was administered. The patient was then prepped and draped in the sterile fashion and attention was placed on the right eye. A sterile lid speculum was placed into the right eye to allow operative exposure. A full-thickness paracentesis was made in the temporal portion of the operative eye. Preservative-free lidocaine 0.1 mL was injected into the anterior chamber followed by viscoelastic. A full-thickness corneal incision was then made into the anterior chamber. A bent needle cystotome was used to create a small jona in the anterior capsule. The capsulorrhexis forceps were then used to create a 360-degree curvilinear capsulorrhexis. The nucleus was then removed using a phacoemulsification handpiece and the remaining cortical material was then removed with irrigation and aspiration handpiece. Following removal of the cortical material, the capsular bag was then inspected and noted to be free of any holes or tears. Viscoelastic was then injected into the capsular bag and the intraocular lens was inserted into the capsular bag. The implant was oriented to correspond with preoperative corneal calvillo made with the patient in the upright position. The viscoelastic material was then removed from both the anterior and posterior chambers and from behind the IOL. The lens and capsular bag were then reinspected. The IOL was well centered and the capsular bag intact. The wound and paracentesis sites were inspected and hydrated with balanced saline solution. Both were found to be self-sealing. The intraocular pressure was assessed digitally and found to be within normal range. A good red reflex was noted at the completion of the procedure. No complications occurred during the operation. At the completion of the procedure, Maxitrol, Voltaren, and Iopidine drops were placed into the operative eye. A sterile eye shield was placed over the operative eye and the patient was transported to the postoperative recovery area having tolerated the procedure well. Postoperative instructions were given along with a postoperative appointment. The patient was advised to call with any questions or concerns. [facility] /[id number]
--- NOTE | 2017-08-14 13:05 | PCM.SN ---
- Free Text/Narrative Note: Post op. Pt discharged home after discharge criteria met. no anesthesia concerns noted.
== END 2017-08-14 11:00 | disposition home or self-care (01) ==
LOC: DL.SDS 06:40
PROVIDERS: ATTEND Ophthalmology
DX: H25.11 Age-related nuclear cataract, right eye (principal); F32.9 Major depressive disorder, single episode, unspecified; K21.9 Gastro-esophageal reflux disease without esophagitis; F41.9 Anxiety disorder, unspecified; E03.9 Hypothyroidism, unspecified; E78.5 Hyperlipidemia, unspecified; Z96.653 Presence of artificial knee joint, bilateral; Z87.891 Personal history of nicotine dependence
CPT/HCPCS: 00142; 66984; A9270; J1100; J2250; J3370; J7050; V2787

== ENCOUNTER 2018-11-08 11:03 | Emergency (ER) | payer MEDICARE, BC ==
[2018-11-08 11:20] VITALS: BP 138/59
--- NOTE | 2018-11-08 12:02 | CR ---
Clinical history: 73-year-old female pain and deformity left wrist (fall) reported to have "lucent line radial styloid sclerosis" on earlier 29 October 2016 exam (films). Interpretation: *Acute new mildly impacted but anatomically aligned distal diametaphyseal radial fracture since 29 October 2016. Soft tissue swelling around the wrist but no sign of other fracture or radiocarpal dislocation. Chronic arthritic changes radiocarpal/first carpal metacarpal and all metacarpophalangeal joints. Nondisplaced tiny ulnar styloid fracture fragment evident on earlier film October 2016.
[2018-11-08] MEDS ORDERED: Acetaminophen 500 MG Tab PO ONE (12:05)
--- NOTE | 2018-11-08 14:17 | ER ---
SUBJECTIVE: The patient is a 73-year-old female, who comes in after slipping on the ice and fell, catching herself with the left wrist and she has some pain in the left wrist. She does have a remote history of left wrist injury. She does have some right knee pain as well but states she is ambulating well and it only comes and goes and is mild and is not here for that. No neck injury, no head injury, syncope, vision changes, bleeding. No neck pain. No chest pain, back pain, pelvic pain. No other issues. PAST MEDICAL HISTORY: Osteoarthritis, bilateral knee replacements, hypertension, hyperlipidemia, hypothyroidism, chronic anticoagulation therapy, insomnia, depression, cardiac arrhythmia. MEDICATIONS: Her list of current medications include: 1. Zoloft 2 tablets p.o. daily. 2. Amiodarone 200 mg p.o. daily. 3. Furosemide 1 tablet p.o. daily. 4. Psyllium p.r.n. 5. Restasis eye drops as directed. 6. Benadryl p.r.n. 7. Vitamin D3 daily. 8. Lorazepam p.r.n. 9. Prednisone 20 mg as directed. 10.Trazodone 50 mg p.o. at bedtime p.r.n. 11.Calcium 600 mg p.o. b.i.d. 12.Premarin vaginal cream as directed. 13.Levothyroxine 0.88 mcg p.o. daily. 14.I-Mary 1 each p.o. b.i.d. 15.Coumadin 2 tablets p.o. as directed. 16.Lipitor 20 mg p.o. at bedtime. ALLERGIES: She is allergic to anesthetics, cause nausea; Cipro, causes nausea; erythromycin, is unknown; Flonase, causes difficulty breathing; indomethacin, unknown; permethrin, causes a rash; simvastatin, causes leg cramps; sulfa antibiotics, unknown; butalbital, causes itching; Celebrex, causes shortness of breath; levofloxacin, causes chest pain; tramadol, she does not recall. SOCIAL HISTORY: No substance abuse. REVIEW OF SYSTEMS: Fall, hurting the left wrist. No head injury, syncope, near syncope, vision changes, ENT issues. No neck pain, chest pain, shortness of breath, back pain, abdominal pain, nausea, vomiting. No bowel or bladder changes or bleeding. She does have some mild right knee pain, she states it is fine, is not here for this. OBJECTIVE: Vital Signs: Stable. She is afebrile. General: Healthy appearing for age. Talkative ambulatory, good historian. A and O x3. No respiratory distress. Head: Normocephalic and atraumatic. Extremities: Focused exam of her left wrist shows some tenderness, mostly medial aspect. No deformity crepitus. She has good capillary refill and pulses. The right knee, on ambulatory, mildly tender anterior. She states she is not here for that, does not want to pursue any further issue of that. DIAGNOSTIC DATA: X-ray of the left wrist did show old injury to the ulnar styloid with possible new injury to the ulnar styloid with small fracture. Otherwise, no acute findings or dislocations. ASSESSMENT: 1. Fall. 2. Left ulnar styloid fracture secondary to #1. PLAN: Splint, Tylenol and ibuprofen for pain. Fall precautions. Follow up with PCP as needed. [facility] /[id number]
--- NOTE | 2018-11-12 00:53 | EDM.PDOC ---
ED HPI GENERAL MEDICAL PROBLEM - General Chief Complaint: Upper Extremity Injury/Pain Stated Complaint: INJURED LEFT WRIST [id number] Left Wrist Pain Score (Numeric/FACES): 10 - Related Data Allergies Allergy/AdvReac Type Severity Reaction Status Date / Time Anesthetics - Sabrina Type- Allergy Mild Nausea Verified 11/08/18 11:06 Parabens [Anesthetics - Sabrina Type] ciprofloxacin [From Cipro] Allergy Unknown Nausea Verified 11/08/18 11:06 ciprofloxacin HCl Allergy Unknown Nausea Verified 11/08/18 11:06 [From Cipro] erythromycin base Allergy Unknown unknown Verified 11/08/18 11:06 [Erythromycin Base] fluticasone propionate Allergy Unknown Difficulty Verified 11/08/18 11:06 [From Flonase] Breathing indomethacin Allergy Unknown unknown Verified 11/08/18 11:06 Penicillins Allergy Unknown Hives Verified 11/08/18 11:06 permethrin [From Elimite] Allergy Unknown Rash Verified 11/08/18 11:06 simvastatin [From Zocor] Allergy Unknown Leg Cramps Verified 11/08/18 11:06 Sulfa (Sulfonamide Allergy Unknown unknown Verified 11/08/18 11:06 Antibiotics) sulfamethoxazole Allergy Unknown unknown Verified 11/08/18 11:06 [From Bactrim] trimethoprim [From Bactrim] Allergy Unknown unknown Verified 11/08/18 11:06 butalbital Allergy Itching Verified 11/08/18 11:06 celecoxib [From Celebrex] Allergy Shortness Verified 11/08/18 11:06 of Breath levofloxacin [From Levaquin] Allergy Chest Pain Verified 11/08/18 11:06 tramadol Allergy Cannot Verified 11/08/18 11:06 Remember Anesthetics - Amide Type AdvReac Mild Nausea Verified 11/08/18 11:06 Home Meds: Home Meds Calcium Carbonate [Calcium] 600 mg PO BID 08/04/13 [History] Estrogens, Conjugated [Premarin Vaginal Crm] 1 squirt VAG .2TIMESWEEK 08/04/13 [ History] Levothyroxine Sodium [Synthroid] 0.88 mcg PO DAILY 08/04/13 [History] Lutein/Minerals/Vit A,C & E [I-Mary] 1 each PO BID 08/04/13 [History] Warfarin [Coumadin] 2 tab PO ASDIRECTED 08/04/13 [History] Warfarin [Coumadin] 4 mg PO ASDIRECTED 08/04/13 [History] atorvaSTATin [Lipitor] 20 mg PO BEDTIME 08/04/13 [History] Amiodarone HCl 200 mg PO DAILY 10/29/16 [History] Sertraline [Zoloft] 2 tab PO DAILY 10/29/16 [History] Vit C/E/Zn/Coppr/Lutein/Zeaxan [Preservision Areds 2 Softgel] 1 tab PO BID 07/17 [History] Furosemide [Lasix] 1 tab PO DAILY 07/31/17 [History] Psyllium [Metamucil] 1 cap PO ASDIRECTED 07/31/17 [History] cycloSPORINE [Restasis] 1 drop EYEBOTH ASDIRECTED 07/31/17 [History] diphenhydrAMINE [Benadryl] 1 cap PO DAILY 07/31/17 [History] Cholecalciferol (Vitamin D3) [Vitamin D3] 1 tab PO DAILY 08/14/17 [History] LORazepam 1 mg PO ASDIRECTED 06/05/18 [History] predniSONE 20 mg PO ASDIRECTED 06/05/18 [History] traZODone HCl [Trazodone HCl] 50 mg PO BEDTIME PRN 06/05/18 [History] Past Medical History HEENT History: Reports: Cataract, Impaired Vision, Macular Degeneration, Sinusitis, Other (See Below) Other HEENT History: wears glasses Cardiovascular History: Reports: Afib, Blood Clots/VTE/DVT, High Cholesterol, Other (See Below) Other Cardiovascular History: 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 THORACIC DISC DISEASE. POLYMYALGIA RHEUMATICA Neurological History: Reports: Migraines, TIA, Vertigo, Other (See Below) Other Neuro History: INSOMNIA Psychiatric History: Reports: Anxiety, Depression, Panic Attack Endocrine/Metabolic History: Reports: Hypothyroidism Hematologic History: Reports: None Immunologic History: Reports: None Oncologic (Cancer) History: Reports: None Dermatologic History: Reports: None - Infectious Disease History Infectious Disease History: Reports: Chicken Pox, Measles, Mumps - Past Surgical History Head Surgeries/Procedures: Reports: None Cardiovascular Surgical History: Reports: None GI Surgical History: Reports: Appendectomy, Colonoscopy Female Surgical History: Reports: Breast Biopsy, Hysterectomy Other Female Surgeries/Procedures: S/P HYSTERECTOMY PARTIAL VAGINAL, OVARIES REMAIN. LEEP Musculoskeletal Surgical History: Reports: Knee Replacement, Shoulder Surgery, Other (See Below) Other Musculoskeletal Surgeries/Procedures:: REPAIR OF HAMMER TOE X2 Social & Family History - Family History Family Medical History: Noncontributory HEENT: Reports: Cataract - Tobacco Use Smoking Status *Q: Never Smoker - Caffeine Use Caffeine Use: Reports: Coffee, Soda Caffeine Use Comment: 8 oz - Recreational Drug Use Recreational Drug Use: No - Living Situation & Occupation Occupation: Employed Course - Vital Signs Last Recorded V/S: Last Vital Signs Temp 36.6 C 11/08/18 11:13 Pulse 72 11/08/18 11:13 Resp 14 11/08/18 11:13 BP 138/59 L 11/08/18 11:13 Pulse Ox 98 11/08/18 11:13 - Orders/Labs/Meds Meds: Medications Discontinued Medications Generic Name Dose Route Start Last Admin Trade Name Brettq PRN Reason Stop Dose Admin Acetaminophen 1,000 mg 11/08/18 12:05 11/08/18 12:29 Tylenol Extra Strength PO 11/08/18 12:06 Not Given ONETIME ONE Departure - Departure Disposition: Home, Self-Care 01 - Discharge Information Instructions: Wrist Splint, Adult, [id number], Wrist Fracture Treated With Immobilization, [id number] Referrals: PCP,None [Ordering Only Provider] - Forms: ED Department Discharge Additional Instructions: You have reinjured your left wrist along the ulnar styloid, which on xray shows previous injury. No dislocation. Please wear the wrist splint, be very careful about falls and reinjury. Use tylenol and motrin for pain. Ice often to reduce swelling. Please see your doctor as needed.
--- NOTE | 2018-11-12 01:08 | ER ---
ADDENDUM: A splint was placed on the patient's wrist. A preformed [facility] wrist splint was used. [facility] /[id number]
== END 2018-11-08 12:54 | disposition home or self-care (01) ==
LOC: DL.ED 11:03
DX: S52.615A Nondisplaced fracture of left ulna styloid process, initial encounter for closed fracture (principal); I10 Essential (primary) hypertension; E78.5 Hyperlipidemia, unspecified; E03.9 Hypothyroidism, unspecified; F32.9 Major depressive disorder, single episode, unspecified; E78.00 Pure hypercholesterolemia, unspecified; F41.9 Anxiety disorder, unspecified; Z79.01 Long term (current) use of anticoagulants; Z79.899 Other long term (current) drug therapy; Z88.4 Allergy status to anesthetic agent; Z88.1 Allergy status to other antibiotic agents; Z88.8 Allergy status to other drugs, medicaments and biological substances; W00.0XXA Fall on same level due to ice and snow, initial encounter
CPT/HCPCS: 73110-LT; 99283-25

== ENCOUNTER 2019-07-24 05:58 | Emergency (ER) | payer MEDICARE, BC ==
--- NOTE | 2019-07-24 06:02 | EDM.PDOC ---
<Dell Noel - Last Filed: 07/24/19 06:00> ED HPI GENERAL MEDICAL PROBLEM - General Chief Complaint: Lower Extremity Injury/Pain Stated Complaint: AMBULANCE-LEG PAIN Time Seen by Provider: 07/24/19 06:00 Source of Information: Reports: Patient History Limitations: Reports: No Limitations - History of Present Illness INITIAL COMMENTS - FREE TEXT/NARRATIVE: woke up with left thigh pain, had this before due to blood clot. is taking coumadin for A fib. denies CP/SOB - Related Data Allergies Allergy/AdvReac Type Severity Reaction Status Date / Time erythromycin base Allergy Unknown unknown Verified 07/24/19 06:10 [Erythromycin Base] indomethacin Allergy Unknown unknown Verified 07/24/19 06:10 Sulfa (Sulfonamide Allergy Unknown unknown Verified 07/24/19 06:10 Antibiotics) sulfamethoxazole Allergy Unknown unknown Verified 07/24/19 06:10 [From Bactrim] trimethoprim [From Bactrim] Allergy Unknown unknown Verified 07/24/19 06:10 aspirin [From Fiorinal] Allergy Cannot Verified 07/24/19 06:10 Remember butalbital [From Fiorinal] Allergy Cannot Verified 07/24/19 06:10 Remember caffeine [From Fiorinal] Allergy Cannot Verified 07/24/19 06:10 Remember celecoxib [From Celebrex] Allergy Shortness Verified 07/24/19 06:10 of Breath fluticasone propionate Allergy Difficulty Verified 07/24/19 06:10 [From Flonase] Breathing Penicillins Allergy Hives Verified 07/24/19 06:10 permethrin [From Elimite] Allergy Rash Verified 07/24/19 06:10 Anesthetics - Amide Type AdvReac Mild Nausea Verified 04/24/19 08:38 Anesthetics - Sabrina Type- AdvReac Unknown Cannot Verified 07/24/19 06:10 Parabens Remember [Anesthetics - Sabrina Type] ciprofloxacin [From Cipro] AdvReac Nausea Verified 07/24/19 06:10 ciprofloxacin HCl AdvReac Nausea Verified 07/24/19 06:10 [From Cipro] leflunomide [From Arava] AdvReac Diarrhea Verified 07/24/19 06:10 levofloxacin [From Levaquin] AdvReac Chest Pain Verified 07/24/19 06:10 methotrexate AdvReac Itching Verified 07/24/19 06:11 simvastatin [From Zocor] AdvReac Leg Cramps Verified 07/24/19 06:10 Home Meds: Home Meds Estrogens, Conjugated [Premarin Vaginal Crm] 1 applic VAG .3TIMESWEEK 08/04/13 [ History] Levothyroxine Sodium [Synthroid] 0.88 mcg PO DAILY 08/04/13 [History] Warfarin [Coumadin] 2.5 mg PO ASDIRECTED 08/04/13 [History] atorvaSTATin [Lipitor] 20 mg PO BEDTIME 08/04/13 [History] Amiodarone HCl 200 mg PO DAILY 10/29/16 [History] Sertraline [Zoloft] 50 tab PO DAILY 10/29/16 [History] Vit C/E/Zn/Coppr/Lutein/Zeaxan [Preservision Areds 2 Softgel] 2 tab PO BID 07/17 [History] Furosemide [Lasix] 20 mg PO DAILY PRN 07/31/17 [History] cycloSPORINE [Restasis] 1 drop EYEBOTH BID 07/31/17 [History] diphenhydrAMINE [Benadryl] 25 mg PO Q6H PRN 07/31/17 [History] riTUXimab [Rituxan] 100 mg IV ASDIRECTED 04/22/19 [History] Calcium Carbonate/Vitamin D3 [Calcium 600 + Vit D 200] 1 tab PO BID 07/24/19 [ History] Dextran 70/Hypromellose/PF [Tears Naturale Free Drops] 1 each OP DAILY 07/24/19 [History] traZODone HCl [Trazodone HCl] 50 mg PO BEDTIME 07/24/19 [History] Past Medical History HEENT History: Reports: Cataract, Impaired Vision, Macular Degeneration, Sinusitis, Other (See Below) Other HEENT History: wears glasses Cardiovascular History: Reports: Afib, Blood Clots/VTE/DVT, High Cholesterol, Other (See Below) 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 THORACIC DISC DISEASE. POLYMYALGIA RHEUMATICA Neurological History: Reports: Migraines, TIA, Vertigo, Other (See Below) Other Neuro History: INSOMNIA Psychiatric History: Reports: Anxiety, Depression, Panic Attack Endocrine/Metabolic History: Reports: Hypothyroidism Hematologic History: Reports: None Immunologic History: Reports: None Oncologic (Cancer) History: Reports: None Dermatologic History: Reports: None - Infectious Disease History Infectious Disease History: Reports: Chicken Pox, Measles, Mumps - Past Surgical History Head Surgeries/Procedures: Reports: None Cardiovascular Surgical History: Reports: None GI Surgical History: Reports: Appendectomy, Colonoscopy Female Surgical History: Reports: Breast Biopsy, Hysterectomy Other Female Surgeries/Procedures: S/P HYSTERECTOMY PARTIAL VAGINAL, OVARIES REMAIN. LEEP Musculoskeletal Surgical History: Reports: Knee Replacement, Shoulder Surgery, Other (See Below) Other Musculoskeletal Surgeries/Procedures:: REPAIR OF HAMMER TOE X2 Social & Family History - Family History Family Medical History: Noncontributory HEENT: Reports: Cataract - Caffeine Use Caffeine Use: Reports: Coffee, Soda Caffeine Use Comment: 8 oz - Living Situation & Occupation Occupation: Employed Review of Systems - Review of Systems Review Of Systems: Comprehensive ROS is negative, except as noted in HPI. ED EXAM, GENERAL - Physical Exam Exam: See Below Exam Limited By: No Limitations General Appearance: Alert, WD/WN, Mild Distress, Other (discomfort) Ears: Hearing Grossly Normal Throat/Mouth: Normal Voice, No Airway Compromise Head: Atraumatic Neck: Non-Tender, Full Range of Motion Respiratory/Chest: No Respiratory Distress Cardiovascular: Regular Rate, Rhythm GI/Abdominal: Soft, Non-Tender Extremities: Other (left thigh tender post aspect, warm, normal ROM. non erythematous) Neurological: Alert, Oriented, Normal Cognition, No Motor/Sensory Deficits Psychiatric: Normal Affect, Normal Mood Skin Exam: Warm, Dry, Normal Color Lymphatic: No Adenopathy Course - Vital Signs Last Recorded V/S: Last Vital Signs Temp 36.4 C 07/24/19 05:58 Pulse 66 07/24/19 05:58 Resp 20 07/24/19 05:58 BP 149/54 H 07/24/19 05:58 Pulse Ox 97 07/24/19 05:58 - Orders/Labs/Meds Labs: Laboratory Tests 07/24/19 07/24/19 07/24/19 Range/Units 06:05 06:05 06:05 WBC 5.3 (5.0-10.0) 10^3/uL RBC 4.08 L (4.2-5.4) 10^6/uL Hgb 13.2 (12.0-16.0) g/dL Hct 41.2 (37.0-47.0) % MCV 101.0 H (80-100) fL MCH 32.4 (27.0-34.0) pg MCHC 32.0 L (33.0-35.0) g/dL Plt Count 323 (150-450) 10^3/uL Neut % (Auto) 46.1 (42.2-75.2) % Lymph % (Auto) 36.1 (20.5-50.1) % Briscoe % (Auto) 13.7 H (2-8) % Eos % (Auto) 3.7 H (1.0-3.0) % Baso % (Auto) 0.4 (0.0-1.0) % PT 14.7 H D (9.0-12.0) SEC INR 1.5 H (0.9-1.2) APTT 28.4 (22.0-34.0) SEC D-Dimer, Quantitative < 100 (0-400) ng/mL Sodium 138 (135-145) mmol/L Potassium 3.5 L (3.6-5.0) mmol/L Chloride 105 (101-111) mmol/L Carbon Dioxide 25.0 (21.0-31.0) mmol/L Anion Gap 11.5 BUN 20 H (7-18) mg/dL Creatinine 1.0 (0.6-1.3) mg/dL Est Cr Clr Drug Dosing 42.62 mL/min Estimated GFR (MDRD) 54 BUN/Creatinine Ratio 20.00 Glucose 91 (74-105) mg/dL Calcium 8.6 (8.4-10.2) mg/dl Total Bilirubin 1.1 H (0.2-1.0) mg/dL AST 33 (10-42) IU/L ALT 22 (10-60) IU/L Alkaline Phosphatase 46 (42-121) IU/L Total Protein 7.0 (6.7-8.2) g/dl Albumin 3.9 (3.2-5.5) g/dl Globulin 3.1 Albumin/Globulin Ratio 1.26 Departure - Departure Disposition: Home, Self-Care 01 Clinical Impression: Sciatica, left side - Discharge Information Instructions: Sciatica, [id number] Forms: ED Department Discharge Care Plan Goals: The patient was advised of the examination, lab and ultrasound results during the visit. The patient was given an IV dose of Toradol while in the ED. The patient was encouraged to contact her primary care facility for further evaluation and treatment (physical therapy). If the patient has any additional symptoms or concerns, the patient should either return to the emergency department or visit her primary care facility. <Brian Mcginnis - Last Filed: 07/24/19 08:45> Departure - Departure Time of Disposition: 08:43 Condition: Fair - Discharge Information *PRESCRIPTION DRUG MONITORING PROGRAM REVIEWED*: Not Applicable *COPY OF PRESCRIPTION DRUG MONITORING REPORT IN PATIENT NICOLASA: Not Applicable
[2019-07-24 06:04] VITALS: BP 149/54; PULSE 66
[2019-07-24 06:37] LABS: ANION GAP 11.5
--- NOTE | 2019-07-24 08:22 | US ---
EXAMINATION: Venous Doppler lower Ext Lt SEX: Female AGE: 74 years CLINICAL HISTORY: 74-year-old female with superficial varicosities, PAIN AND SWELLING LEFT THIGH (obese patient on anticoagulants has a history of "blood clots"). Interpretation: 1. "Slow" flow demonstrated in the superficial gastrocnemius vein. 2. No sign of intraluminal echogenic thrombus and normal compressibility deep veins of the left groin, thigh, knee and calf. 3. Satisfactory augmentation and venous waveforms demonstrated respectively in the peroneal/posterior tibial veins of the calf, popliteal vein behind the left knee, and approximately in the femoral veins of the left thigh. 4. No sign of popliteal or Cervantes's cyst. No popliteal artery aneurysm demonstrated. CONCLUSION: No current evidence deep vein thrombosis, left lower extremity i.e. negative exam.
[2019-07-24] MEDS ORDERED: Ketorolac 30 MG/ML SDV IVPUSH ONE (08:42)
== END 2019-07-24 08:55 | disposition home or self-care (01) ==
LOC: DL.ED 05:58
DX: M54.32 Sciatica, left side (principal); I48.91 Unspecified atrial fibrillation; E03.9 Hypothyroidism, unspecified; E78.00 Pure hypercholesterolemia, unspecified; Z88.6 Allergy status to analgesic agent; Z88.1 Allergy status to other antibiotic agents; Z88.2 Allergy status to sulfonamides; Z88.8 Allergy status to other drugs, medicaments and biological substances; Z88.0 Allergy status to penicillin; Z79.01 Long term (current) use of anticoagulants; Z79.899 Other long term (current) drug therapy
CPT/HCPCS: 36415; 80053; 85025; 85379; 85610; 85730; 93971; 96374; 99284; J1885; 99283

== ENCOUNTER 2019-08-26 12:16 | Emergency (ER) | payer MEDICARE, BC ==
[2019-08-26 12:30] VITALS: BP 126/49; PULSE 76
[2019-08-26] MEDS ORDERED: Acyclovir 200 MG Cap PO ONE (12:42)
[2019-08-26] MEDS ORDERED: predniSONE 20 MG Tab PO ONE (12:42)
[2019-08-26] MEDS ORDERED: Loratadine 10 MG Tab PO ONE (12:43)
--- NOTE | 2019-08-26 12:51 | EDM.PDOC ---
Scribed by Deepa Christopher 08/26/19 1250 for James Hsu MD ED HPI GENERAL MEDICAL PROBLEM - General Chief Complaint: Allergic Reaction Stated Complaint: SOB/ALLERGIC REACTION TO A MEDICATION/ Time Seen by Provider: 08/26/19 12:29 Source of Information: Reports: Patient, RN, RN Notes Reviewed History Limitations: Reports: No Limitations - History of Present Illness INITIAL COMMENTS - FREE TEXT/NARRATIVE: Patient presents to ER with a rash for one month. The onset of this rash after first dose of Remicade. Patient states that the rash is tender and itches scattered all over her body with exception of the face. Denies rash to the palms or plantar surfaces. Onset: Gradual Duration: Constant Location: Reports: Generalized Quality: Reports: Ache Severity: Moderate Improves with: Reports: None Worsens with: Reports: None Associated Symptoms: Reports: No Other Symptoms - Related Data Allergies Allergy/AdvReac Type Severity Reaction Status Date / Time erythromycin base Allergy Unknown unknown Verified 08/14/19 21:48 [Erythromycin Base] indomethacin Allergy Unknown unknown Verified 08/14/19 21:48 Sulfa (Sulfonamide Allergy Unknown unknown Verified 08/14/19 21:48 Antibiotics) sulfamethoxazole Allergy Unknown unknown Verified 08/14/19 21:48 [From Bactrim] trimethoprim [From Bactrim] Allergy Unknown unknown Verified 08/14/19 21:48 aspirin [From Fiorinal] Allergy Cannot Verified 08/14/19 21:48 Remember butalbital [From Fiorinal] Allergy Cannot Verified 08/14/19 21:48 Remember caffeine [From Fiorinal] Allergy Cannot Verified 08/14/19 21:48 Remember celecoxib [From Celebrex] Allergy Shortness Verified 08/14/19 21:48 of Breath fluticasone propionate Allergy Difficulty Verified 08/14/19 21:48 [From Flonase] Breathing Penicillins Allergy Hives Verified 08/14/19 21:48 permethrin [From Elimite] Allergy Rash Verified 08/14/19 21:48 Anesthetics - Amide Type AdvReac Mild Nausea Verified 08/14/19 21:48 Anesthetics - Sabrina Type- AdvReac Unknown Cannot Verified 08/14/19 21:48 Parabens Remember [Anesthetics - Sabrina Type] ciprofloxacin [From Cipro] AdvReac Nausea Verified 08/14/19 21:48 ciprofloxacin HCl AdvReac Nausea Verified 08/14/19 21:48 [From Cipro] leflunomide [From Arava] AdvReac Diarrhea Verified 08/14/19 21:48 levofloxacin [From Levaquin] AdvReac Chest Pain Verified 08/14/19 21:48 methotrexate AdvReac Itching Verified 08/14/19 21:48 simvastatin [From Zocor] AdvReac Leg Cramps Verified 08/14/19 21:48 Home Meds: Home Meds Estrogens, Conjugated [Premarin Vaginal Crm] 1 applic VAG .3TIMESWEEK 08/04/13 [ History] Levothyroxine Sodium [Synthroid] 0.88 mcg PO DAILY 08/04/13 [History] Warfarin [Coumadin] 2.5 mg PO DAILY 08/04/13 [History] atorvaSTATin [Lipitor] 20 mg PO BEDTIME 08/04/13 [History] Amiodarone HCl 200 mg PO DAILY 10/29/16 [History] Sertraline [Zoloft] 50 tab PO DAILY 10/29/16 [History] Vit C/E/Zn/Coppr/Lutein/Zeaxan [Preservision Areds 2 Softgel] 2 tab PO BID 07/17 [History] Furosemide [Lasix] 20 mg PO DAILY PRN 07/31/17 [History] cycloSPORINE [Restasis] 1 drop EYEBOTH BID 07/31/17 [History] diphenhydrAMINE [Benadryl] 25 mg PO Q6H PRN 07/31/17 [History] riTUXimab [Rituxan] 100 mg IV ASDIRECTED 04/22/19 [History] Calcium Carbonate/Vitamin D3 [Calcium 600 + Vit D 200] 1 tab PO BID 07/24/19 [ History] Dextran 70/Hypromellose/PF [Tears Naturale Free Drops] 1 each OP DAILY 07/24/19 [History] traZODone HCl [Trazodone HCl] 50 mg PO BEDTIME 07/24/19 [History] Past Medical History HEENT History: Reports: Cataract, Impaired Vision, Macular Degeneration, Sinusitis, Other (See Below) Other HEENT History: wears glasses Cardiovascular History: Reports: Afib, Blood Clots/VTE/DVT, High Cholesterol, Other (See Below) 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 THORACIC DISC DISEASE. POLYMYALGIA RHEUMATICA Neurological History: Reports: Migraines, TIA, Vertigo, Other (See Below) Other Neuro History: INSOMNIA Psychiatric History: Reports: Anxiety, Depression, Panic Attack Endocrine/Metabolic History: Reports: Hypothyroidism Hematologic History: Reports: None Immunologic History: Reports: None Oncologic (Cancer) History: Reports: None Dermatologic History: Reports: None - Infectious Disease History Infectious Disease History: Reports: Chicken Pox, Measles, Mumps - Past Surgical History Head Surgeries/Procedures: Reports: None HEENT Surgical History: Reports: Cataract Surgery Other HEENT Surgeries/Procedures: Bilateral Cataract Removal Cardiovascular Surgical History: Reports: None GI Surgical History: Reports: Colonoscopy Female Surgical History: Reports: Breast Biopsy, Hysterectomy Other Female Surgeries/Procedures: S/P HYSTERECTOMY PARTIAL VAGINAL, OVARIES REMAIN. LEEP Musculoskeletal Surgical History: Reports: Knee Replacement, Shoulder Surgery, Other (See Below) Other Musculoskeletal Surgeries/Procedures:: REPAIR OF HAMMER TOE X2. Bunionectomy *2 Social & Family History - Family History Family Medical History: Noncontributory HEENT: Reports: Cataract - Caffeine Use Caffeine Use: Reports: Coffee Caffeine Use Comment: 1 cup daily - Living Situation & Occupation Occupation: Employed ED ROS ALLERGIC REACTION - Review of Systems Review Of Systems: Comprehensive ROS is negative, except as noted in HPI. ED EXAM GENERAL NO PERIP PULSE - Physical Exam Exam: See Below Exam Limited By: No Limitations General Appearance: Alert, WD/WN, No Apparent Distress Eye Exam: Bilateral Eye: EOMI, Normal Inspection, PERRL Ears: Normal External Exam, Normal Canal, Hearing Grossly Normal, Normal TMs Nose: Normal Inspection, Normal Mucosa, No Blood Throat/Mouth: Normal Inspection, Normal Lips, Normal Teeth, Normal Gums, Normal Oropharynx, Normal Voice, No Airway Compromise Head: Atraumatic, Normocephalic Neck: Normal Inspection, Supple, Non-Tender, Full Range of Motion Respiratory/Chest: No Respiratory Distress, Lungs Clear, Normal Breath Sounds, No Accessory Muscle Use, Chest Non-Tender Cardiovascular: Systolic Murmur (2/6) GI/Abdominal: Normal Bowel Sounds, Soft, Non-Tender, No Organomegaly, No Distention, No Abnormal Bruit, No Mass (Female) Exam: Deferred Rectal (Female) Exam: Deferred Back Exam: Normal Inspection, Full Range of Motion, NT Extremities: Normal Inspection, Normal Range of Motion, Non-Tender, Normal Capillary Refill, No Pedal Edema Neurological: Alert, Oriented, CN II-XII Intact, Normal Cognition, Normal Gait, Normal Reflexes, No Motor/Sensory Deficits Psychiatric: Normal Affect, Normal Mood Skin Exam: Rash (generalized patches of maculopapular lesions sparing the face, some areas are herpatiform in appearance. ) Course - Vital Signs Last Recorded V/S: Last Vital Signs Temp 97.1 F 08/26/19 12:29 Pulse 76 08/26/19 12:29 Resp 16 08/26/19 12:29 BP 126/49 L 08/26/19 12:29 Pulse Ox 99 08/26/19 12:29 - Orders/Labs/Meds Meds: Medications Discontinued Medications Generic Name Dose Route Start Last Admin Trade Name Freq PRN Reason Stop Dose Admin Acyclovir 800 mg 08/26/19 12:42 Zovirax PO 08/26/19 12:43 ONETIME ONE Loratadine 10 mg 08/26/19 12:43 Claritin PO 08/26/19 12:44 ONETIME ONE Prednisone 40 mg 08/26/19 12:42 Prednisone PO 08/26/19 12:43 ONETIME ONE Departure - Departure Time of Disposition: 12:48 Disposition: Home, Self-Care 01 Condition: Good Clinical Impression: Rash and nonspecific skin eruption - Discharge Information *PRESCRIPTION DRUG MONITORING PROGRAM REVIEWED*: Not Applicable *COPY OF PRESCRIPTION DRUG MONITORING REPORT IN PATIENT NICOLASA: Not Applicable Instructions: Drug Rash Forms: ED Department Discharge Additional Instructions: RX: Loratadine 10mg. RX: Valtrex 1gram. RX: Prednisone 20mg. Follow up in the clinic within the next 5 days, discuss with her doctor the need for Prednisone taper dose. Sepsis Event Note - Focused Exam Vital Signs: Vital Signs Temp Pulse Resp BP Pulse Ox 08/26/19 12:29 97.1 F 76 16 126/49 L 99 Date Exam was Performed: 08/26/19 Time Exam was Performed: 12:50 I have read and agree with the documentation that has been completed regarding this visit. By signing this record, I attest that the documentation was completed in my physical presence and is an accurate record of the encounter.
== END 2019-08-26 13:00 | disposition home or self-care (01) ==
LOC: DL.ED 12:16
DX: R21 Rash and other nonspecific skin eruption (principal); E78.00 Pure hypercholesterolemia, unspecified; I48.91 Unspecified atrial fibrillation; F41.9 Anxiety disorder, unspecified; F32.9 Major depressive disorder, single episode, unspecified; E03.9 Hypothyroidism, unspecified; Z79.01 Long term (current) use of anticoagulants; Z88.1 Allergy status to other antibiotic agents; Z88.2 Allergy status to sulfonamides; Z88.8 Allergy status to other drugs, medicaments and biological substances; Z79.899 Other long term (current) drug therapy
CPT/HCPCS: 99282; A9270

== ENCOUNTER 2019-11-14 19:03 | Emergency (ER) | payer MEDICARE, BC ==
[2019-11-14 19:00] VITALS: BP 154/55; PULSE 79
--- NOTE | 2019-11-14 19:09 | EDM.PDOC ---
ED HPI GENERAL MEDICAL PROBLEM - General Chief Complaint: Cardiovascular Problem Stated Complaint: AMBULANCE Time Seen by Provider: 11/14/19 19:06 Source of Information: Reports: Patient History Limitations: Reports: No Limitations - History of Present Illness INITIAL COMMENTS - FREE TEXT/NARRATIVE: onset heart fluttering while watching TV, states was following the news. didn't thin was upset or anxious about the current news. also had sudden sharp pain shooting across forehead at the time lasting seconds but gone immediately. right now feels somewhat better. - Related Data Allergies Allergy/AdvReac Type Severity Reaction Status Date / Time erythromycin base Allergy Unknown unknown Verified 11/14/19 19:18 [Erythromycin Base] indomethacin Allergy Unknown unknown Verified 11/14/19 19:18 Sulfa (Sulfonamide Allergy Unknown unknown Verified 11/14/19 19:18 Antibiotics) sulfamethoxazole Allergy Unknown unknown Verified 11/14/19 19:18 [From Bactrim] trimethoprim [From Bactrim] Allergy Unknown unknown Verified 11/14/19 19:18 aspirin [From Fiorinal] Allergy Cannot Verified 11/14/19 19:18 Remember butalbital [From Fiorinal] Allergy Cannot Verified 11/14/19 19:18 Remember caffeine [From Fiorinal] Allergy Cannot Verified 11/14/19 19:18 Remember celecoxib [From Celebrex] Allergy Shortness Verified 11/14/19 19:18 of Breath fluticasone propionate Allergy Difficulty Verified 11/14/19 19:18 [From Flonase] Breathing Penicillins Allergy Hives Verified 11/14/19 19:18 ciprofloxacin [From Cipro] AdvReac Nausea Verified 11/14/19 19:18 ciprofloxacin HCl AdvReac Nausea Verified 11/14/19 19:18 [From Cipro] leflunomide [From Arava] AdvReac Diarrhea Verified 11/14/19 19:18 levofloxacin [From Levaquin] AdvReac Chest Pain Verified 11/14/19 19:18 methotrexate AdvReac Itching Verified 11/14/19 19:18 simvastatin [From Zocor] AdvReac Leg Cramps Verified 11/14/19 19:18 Home Meds: Home Meds Estrogens, Conjugated [Premarin Vaginal Crm] 1 applic VAG .3TIMESWEEK 08/04/13 [ History] Levothyroxine Sodium [Synthroid] 0.88 mcg PO DAILY 08/04/13 [History] Warfarin [Coumadin] 5 mg PO DAILY 08/04/13 [History] atorvaSTATin [Lipitor] 20 mg PO BEDTIME 08/04/13 [History] Amiodarone HCl 200 mg PO DAILY 10/29/16 [History] Sertraline [Zoloft] 50 tab PO DAILY 10/29/16 [History] Furosemide [Lasix] 20 mg PO DAILY PRN 07/31/17 [History] cycloSPORINE [Restasis] 1 drop EYEBOTH BID 07/31/17 [History] diphenhydrAMINE [Benadryl] 25 mg PO Q6H PRN 07/31/17 [History] Calcium Carbonate/Vitamin D3 [Calcium 600 + Vit D 200] 1 tab PO BID 07/24/19 [ History] Dextran 70/Hypromellose/PF [Tears Naturale Free Drops] 1 each OP DAILY 07/24/19 [History] predniSONE [Prednisone] 10 mg PO DAILY 11/14/19 [History] Past Medical History HEENT History: Reports: Cataract, Impaired Vision, Macular Degeneration, Sinusitis, Other (See Below) Other HEENT History: wears glasses Cardiovascular History: Reports: Afib, Blood Clots/VTE/DVT, High Cholesterol, Other (See Below) 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 THORACIC DISC DISEASE. POLYMYALGIA RHEUMATICA Neurological History: Reports: Migraines, TIA, Vertigo, Other (See Below) Other Neuro History: INSOMNIA Psychiatric History: Reports: Anxiety, Depression, Panic Attack Endocrine/Metabolic History: Reports: Hypothyroidism Hematologic History: Reports: None Immunologic History: Reports: None Oncologic (Cancer) History: Reports: None Dermatologic History: Reports: None - Infectious Disease History Infectious Disease History: Reports: Chicken Pox, Measles, Mumps - Past Surgical History Head Surgeries/Procedures: Reports: None HEENT Surgical History: Reports: Cataract Surgery Other HEENT Surgeries/Procedures: Bilateral Cataract Removal Cardiovascular Surgical History: Reports: None GI Surgical History: Reports: Colonoscopy Female Surgical History: Reports: Breast Biopsy, Hysterectomy Other Female Surgeries/Procedures: S/P HYSTERECTOMY PARTIAL VAGINAL, OVARIES REMAIN. LEEP Musculoskeletal Surgical History: Reports: Knee Replacement, Shoulder Surgery, Other (See Below) Other Musculoskeletal Surgeries/Procedures:: REPAIR OF HAMMER TOE X2. Bunionectomy *2 Social & Family History - Family History Family Medical History: Noncontributory HEENT: Reports: Cataract - Tobacco Use Smoking Status *Q: Former Smoker Used Tobacco, but Quit: Yes Month/Year Tobacco Last Used: unk - Caffeine Use Caffeine Use: Reports: Soda Caffeine Use Comment: 1 cup daily - Recreational Drug Use Recreational Drug Use: No - Living Situation & Occupation Occupation: Employed ED ROS GENERAL - Review of Systems Review Of Systems: Comprehensive ROS is negative, except as noted in HPI. ED EXAM, GENERAL - Physical Exam Exam: See Below Exam Limited By: No Limitations General Appearance: Alert, WD/WN, Anxious Ears: Hearing Grossly Normal Throat/Mouth: Normal Voice, No Airway Compromise Head: Atraumatic Neck: Non-Tender, Full Range of Motion Respiratory/Chest: No Respiratory Distress Cardiovascular: Regular Rate, Rhythm GI/Abdominal: Soft, Non-Tender Neurological: Alert, Oriented, Normal Cognition, Normal Gait, No Motor/Sensory Deficits Psychiatric: Anxious Skin Exam: Warm, Dry, Normal Color Lymphatic: No Adenopathy Course - Vital Signs Last Recorded V/S: Last Vital Signs Temp 36.5 C 11/14/19 18:57 Pulse 79 11/14/19 18:57 Resp 23 H 11/14/19 18:57 BP 154/55 H 11/14/19 18:57 Pulse Ox 98 11/14/19 18:57 - Orders/Labs/Meds Orders: Active Orders 24 hr Category Date Time Status EKG 12 Lead [EKG Documentation Completion] [RC] STAT Care 11/14/19 19:06 Active Labs: Laboratory Tests 11/14/19 11/14/19 Range/Units 19:05 19:05 WBC 10.3 H (5.0-10.0) 10^3/uL RBC 4.52 (4.2-5.4) 10^6/uL Hgb 14.5 (12.0-16.0) g/dL Hct 44.6 (37.0-47.0) % MCV 98.7 (80-100) fL MCH 32.1 (27.0-34.0) pg MCHC 32.5 L (33.0-35.0) g/dL Plt Count 335 (150-450) 10^3/uL Neut % (Auto) 63.5 (42.2-75.2) % Lymph % (Auto) 26.0 (20.5-50.1) % [place] % (Auto) 9.7 H (2-8) % Eos % (Auto) 0.7 L (1.0-3.0) % Baso % (Auto) 0.1 (0.0-1.0) % Sodium 142 (136-145) mmol/L Potassium 3.7 (3.5-5.1) mmol/L Chloride 104 (98-107) mmol/L Carbon Dioxide 28 (21-32) mmol/L Anion Gap 13.7 H (7-13) mEq/L BUN 10 (7-18) mg/dL Creatinine 1.16 H (0.55-1.02) mg/dL Est Cr Clr Drug Dosing 36.74 mL/min Estimated GFR (MDRD) 46 BUN/Creatinine Ratio 8.6 (No establ ref range) Glucose 116 H (74-99) mg/dL Calcium 8.3 L (8.5-10.1) mg/dL Total Bilirubin 0.6 (0.2-1.0) mg/dL AST 31 (15-37) U/L ALT 37 (14-59) U/L Alkaline Phosphatase 58 (46-116) U/L Troponin I < 0.017 (0.000-0.056) ng/mL Total Protein 7.7 (6.4-8.2) g/dL Albumin 4.0 (3.4-5.0) g/dL Globulin 3.7 Albumin/Globulin Ratio 1.1 - Re-Assessments/Exams Free Text/Narrative Re-Assessment/Exam: 11/14/19 19:54 results discussed with pt who still feeling occasional fluttering. Departure - Departure Time of Disposition: 19:54 Disposition: Home, Self-Care 01 Condition: Good Clinical Impression: Palpitations Forms: ED Department Discharge Additional Instructions: 1) take amiodarone 200mg 2 times daily and call Dr Dey Saturday for appointment 2) recheck if there is any change or concern Sepsis Event Note - Evaluation Sepsis Screening Result: No Definite Risk - Focused Exam Vital Signs: Vital Signs Temp Pulse Resp BP Pulse Ox 11/14/19 18:57 36.5 C 79 23 H 154/55 H 98 Date Exam was Performed: 11/14/19 Time Exam was Performed: 19:54 - My Orders Last 24 Hours: My Active Orders 11/14/19 19:06 EKG 12 Lead [EKG Documentation Completion] [RC] STAT - Assessment/Plan Last 24 Hours: My Active Orders 11/14/19 19:06 EKG 12 Lead [EKG Documentation Completion] [RC] STAT
[2019-11-14 19:32] LABS: ANION GAP 13.7 mEq/L (7-13); CHLORIDE,CL 104 mmol/L (98-107); SODIUM,NA 142 mmol/L (136-145)
== END 2019-11-14 20:01 | disposition home or self-care (01) ==
LOC: DL.ED 19:03
DX: R00.2 Palpitations (principal); I48.91 Unspecified atrial fibrillation; E78.00 Pure hypercholesterolemia, unspecified; Z86.718 Personal history of other venous thrombosis and embolism; M19.90 Unspecified osteoarthritis, unspecified site; F41.0 Panic disorder [episodic paroxysmal anxiety]; F32.9 Major depressive disorder, single episode, unspecified; E03.9 Hypothyroidism, unspecified; Z86.73 Personal history of transient ischemic attack (TIA), and cerebral infarction without residual deficits; Z87.891 Personal history of nicotine dependence; Z88.1 Allergy status to other antibiotic agents; Z88.2 Allergy status to sulfonamides; Z88.8 Allergy status to other drugs, medicaments and biological substances; Z88.0 Allergy status to penicillin; Z79.01 Long term (current) use of anticoagulants; Z79.899 Other long term (current) drug therapy
CPT/HCPCS: 36415; 80053; 84484; 85025; 93005; 99284; 99285-25

== ENCOUNTER 2020-03-03 06:21 | Emergency (ER) | payer MEDICARE, BC ==
[2020-03-03] MEDS ORDERED: Sodium Chloride 0.9% 10 ML Syringe FLUSH PRN (06:25)
[2020-03-03 06:35] VITALS: BP 160/83; PULSE 87
--- NOTE | 2020-03-03 06:49 | EDM.PDOC ---
<Brian Mcginnis M - Last Filed: 03/03/20 07:26> ED HPI GENERAL MEDICAL PROBLEM - General Chief Complaint: Cardiovascular Problem Stated Complaint: AFIB Time Seen by Provider: 03/03/20 06:40 - Related Data Allergies Allergy/AdvReac Type Severity Reaction Status Date / Time erythromycin base Allergy Unknown unknown Verified 03/03/20 06:36 [Erythromycin Base] indomethacin Allergy Unknown unknown Verified 03/03/20 06:36 Sulfa (Sulfonamide Allergy Unknown unknown Verified 03/03/20 06:36 Antibiotics) sulfamethoxazole Allergy Unknown unknown Verified 03/03/20 06:36 [From Bactrim] trimethoprim [From Bactrim] Allergy Unknown unknown Verified 03/03/20 06:36 aspirin [From Fiorinal] Allergy Cannot Verified 03/03/20 06:36 Remember butalbital [From Fiorinal] Allergy Cannot Verified 03/03/20 06:36 Remember caffeine [From Fiorinal] Allergy Cannot Verified 03/03/20 06:36 Remember celecoxib [From Celebrex] Allergy Shortness Verified 03/03/20 06:36 of Breath fluticasone propionate Allergy Difficulty Verified 03/03/20 06:36 [From Flonase] Breathing Penicillins Allergy Hives Verified 03/03/20 06:36 ciprofloxacin [From Cipro] AdvReac Nausea Verified 03/03/20 06:36 ciprofloxacin HCl AdvReac Nausea Verified 03/03/20 06:36 [From Cipro] leflunomide [From Arava] AdvReac Diarrhea Verified 03/03/20 06:36 levofloxacin [From Levaquin] AdvReac Chest Pain Verified 03/03/20 06:36 methotrexate AdvReac Itching Verified 03/03/20 06:36 simvastatin [From Zocor] AdvReac Leg Cramps Verified 03/03/20 06:36 Home Meds: Home Meds Estrogens, Conjugated [Premarin Vaginal Crm] 1 applic VAG .3TIMESWEEK 08/04/13 [History] Levothyroxine Sodium [Synthroid] 0.88 mcg PO DAILY 08/04/13 [History] Warfarin [Coumadin] 5 mg PO DAILY 08/04/13 [History] atorvaSTATin [Lipitor] 20 mg PO BEDTIME 08/04/13 [History] Amiodarone HCl 200 mg PO DAILY 10/29/16 [History] Sertraline [Zoloft] 50 tab PO DAILY 10/29/16 [History] Furosemide [Lasix] 20 mg PO DAILY PRN 07/31/17 [History] cycloSPORINE [Restasis] 1 drop EYEBOTH BID 07/31/17 [History] diphenhydrAMINE [Benadryl] 25 mg PO Q6H PRN 07/31/17 [History] Calcium Carbonate/Vitamin D3 [Calcium 600 + Vit D 200] 1 tab PO BID 07/24/19 [History] Dextran 70/Hypromellose/PF [Tears Naturale Free Drops] 1 each OP DAILY 07/24/19 [History] predniSONE [Prednisone] 10 mg PO DAILY 11/14/19 [History] Course - Re-Assessments/Exams Free Text/Narrative Re-Assessment/Exam: 03/03/20 07:26 Patient care was taken over due to shift change. Patient's history, examination, EKG and lab results were reviewed. Assessment and treatment was appropriate. The patient was advised of the results and now feels much better. Departure - Departure Time of Disposition: 07:28 Disposition: Home, Self-Care 01 Condition: Good Clinical Impression: Atrial fibrillation Qualifiers: Atrial fibrillation type: unspecified Qualified Code(s): I48.91 - Unspecified atrial fibrillation Instructions: Atrial Fibrillation, [id number] Referrals: Andrew Cabrera MD [Primary Care Provider] - Forms: ED Department Discharge Care Plan Goals: The patient was advised of the examination, lab and EKG results during the visit. The patient was encouraged to continue to take her medications as prescribed. If the patient has any additional symptoms or concerns, the patient should either return to the emergency department or visit her primary care facility. <Thanh Epps - Last Filed: 03/04/20 00:27> ED HPI GENERAL MEDICAL PROBLEM - General Source of Information: Reports: Patient History Limitations: Reports: No Limitations - History of Present Illness INITIAL COMMENTS - FREE TEXT/NARRATIVE: Patient comes emergency department today from home with complaints of a headache and racing heart sensation. This patient woken up about 5:00 this morning and had a very sudden onset of a headache which is a very typical symptom for her fast atrial fibrillation. She checked her blood pressure at home and noticed it was somewhat elevated 160/90 with a heart rate of 115. She did not have any chest pain palpitations weakness dizziness lightheadedness. No visual disturbances. No paresthesias. No diplopia. Her headache is improved by about 50%. She feels much better than she did when she was at home. She does realize that she missed her amiodarone dosing yesterday. She is chronically in atrial fibrillation. She complains of a headache that is 50% better than it was when she was at home. She has no chest pain shortness of breath or difficulty breathing. No fever no chills. No cough or congestion. No COVID exposure. No COVID symptoms. No paresthesias of her upper or lower extremities. No change in the functionality of her upper or lower extremities. No confusion. 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 THORACIC DISC DISEASE. POLYMYALGIA RHEUMATICA Neurological History: Reports: Migraines, TIA, Vertigo, Other (See Below) Other Neuro History: INSOMNIA Psychiatric History: Reports: Anxiety, Depression, Panic Attack Endocrine/Metabolic History: Reports: Hypothyroidism Hematologic History: Reports: None Immunologic History: Reports: None Oncologic (Cancer) History: Reports: None Dermatologic History: Reports: None - Infectious Disease History Infectious Disease History: Reports: Chicken Pox, Measles, Mumps - Past Surgical History Head Surgeries/Procedures: Reports: None HEENT Surgical History: Reports: Cataract Surgery Other HEENT Surgeries/Procedures: Bilateral Cataract Removal Cardiovascular Surgical History: Reports: None GI Surgical History: Reports: Colonoscopy Female Surgical History: Reports: Breast Biopsy, Hysterectomy Other Female Surgeries/Procedures: S/P HYSTERECTOMY PARTIAL VAGINAL, OVARIES REMAIN. LEEP Musculoskeletal Surgical History: Reports: Knee Replacement, Shoulder Surgery, Other (See Below) Other Musculoskeletal Surgeries/Procedures:: REPAIR OF HAMMER TOE X2. Bunionectomy *2 Social & Family History - Family History Family Medical History: Noncontributory HEENT: Reports: Cataract - Tobacco Use Smoking Status *Q: Former Smoker Used Tobacco, but Quit: No Second Hand Smoke Exposure: No - Caffeine Use Caffeine Use: Reports: Coffee Caffeine Use Comment: 1 cup daily - Recreational Drug Use Recreational Drug Use: No - Living Situation & Occupation Occupation: Employed ED ROS GENERAL - Review of Systems Review Of Systems: Comprehensive ROS is negative, except as noted in HPI. ED EXAM, GENERAL - Physical Exam Exam: See Below Exam Limited By: No Limitations General Appearance: Alert, WD/WN, No Apparent Distress Eye Exam: Bilateral Eye: EOMI, PERRL Ears: Normal External Exam. No: Normal TMs (Left TM is occluded by cerumen right TM is clear) Nose: Normal Inspection Throat/Mouth: Normal Inspection, Normal Lips, Normal Oropharynx Head: Atraumatic, Normocephalic Neck: Normal Inspection, Supple, Non-Tender Respiratory/Chest: No Respiratory Distress, Lungs Clear, Normal Breath Sounds, No Accessory Muscle Use, Chest Non-Tender Cardiovascular: Regular Rate, Rhythm, No Edema, Irregularly Irregular GI/Abdominal: Normal Bowel Sounds, Soft, Non-Tender (Female) Exam: Deferred Rectal (Female) Exam: Deferred Back Exam: Normal Inspection, Full Range of Motion Extremities: Normal Inspection, Normal Range of Motion, Normal Capillary Refill, Pedal Edema (1+ pedal edema in the left lower extremity none on the right which is chronic for her.) Neurological: Alert, Oriented, CN II-XII Intact, Normal Cognition, No Motor/Sensory Deficits Psychiatric: Normal Affect, Normal Mood Skin Exam: Warm, Dry, Intact, Normal Color, No Rash Lymphatic: No Adenopathy EKG INTERPRETATION EKG Date: 03/03/20 Time: 06:31 Rhythm: A-Fib Rate (Beats/Min): 84 [place]: LAD-Left [place] Deviation QRS: Normal ST-T: Normal QT: Normal Comparison: No Change Course - Vital Signs Last Recorded V/S: Last Vital Signs Temp 97.4 F 03/03/20 06:30 Pulse 87 03/03/20 06:30 Resp 19 03/03/20 06:30 BP 160/83 H 03/03/20 06:30 Pulse Ox 98 03/03/20 06:30 - Orders/Labs/Meds Orders: Active Orders 24 hr Category Date Time Status EKG Documentation Completion [RC] STAT Care 03/03/20 06:25 Active Peripheral IV Care [RC] . DIRECTED Care 03/03/20 06:25 Active Peripheral IV Insertion Adult [OM.PC] Stat Oth 03/03/20 06:25 Ordered Labs: Laboratory Tests 03/03/20 03/03/20 Range/Units 06:27 06:27 WBC 8.7 (5.0-10.0) 10^3/uL RBC 4.55 (4.2-5.4) 10^6/uL Hgb 14.6 (12.0-16.0) g/dL Hct 45.9 (37.0-47.0) % MCV 100.9 H (80-100) fL MCH 32.1 (27.0-34.0) pg MCHC 31.8 L (33.0-35.0) g/dL Plt Count 324 (150-450) 10^3/uL Neut % (Auto) 53.0 (42.2-75.2) % Lymph % (Auto) 33.8 (20.5-50.1) % [place] % (Auto) 11.5 H (2-8) % Eos % (Auto) 1.5 (1.0-3.0) % Baso % (Auto) 0.2 (0.0-1.0) % Add Manual Diff Yes Neutrophils % (Manual) 49 (42-75) % Band Neutrophils % 1 % Lymphocytes % (Manual) 40 (20-50) % Monocytes % (Manual) 8 (2-8) % Eosinophils % (Manual) 2 (1-3) % Sodium 143 (136-145) mmol/L Potassium 3.5 (3.5-5.1) mmol/L Chloride 105 (98-107) mmol/L Carbon Dioxide 30 (21-32) mmol/L Anion Gap 11.5 (7-13) mEq/L BUN 13 (7-18) mg/dL Creatinine 1.09 H (0.55-1.02) mg/dL Est Cr Clr Drug Dosing 39.92 mL/min Estimated GFR (MDRD) 49 BUN/Creatinine Ratio 11.9 (No establ ref range) Glucose 78 (74-99) mg/dL Calcium 8.5 (8.5-10.1) mg/dL Total Bilirubin 0.8 (0.2-1.0) mg/dL AST 27 (15-37) U/L ALT 39 (14-59) U/L Alkaline Phosphatase 51 (46-116) U/L Troponin I < 0.017 (0.000-0.056) ng/mL Total Protein 7.4 (6.4-8.2) g/dL Albumin 3.8 (3.4-5.0) g/dL Globulin 3.6 Albumin/Globulin Ratio 1.1 TSH, Ultra Sensitive 6.32 H (0.36-3.74) uIU/mL Meds: Medications Discontinued Medications Generic Name Dose Route Start Last Admin Trade Name Freq PRN Reason Stop Dose Admin Sodium Chloride 10 ml 03/03/20 06:25 03/03/20 06:28 Saline Flush FLUSH 10 ml ASDIRECTED PRN Administration Keep Vein Open Sepsis Event Note (ED) - Evaluation Sepsis Screening Result: No Definite Risk - My Orders Last 24 Hours: My Active Orders 03/03/20 06:25 EKG Documentation Completion [RC] STAT Peripheral IV Care [RC] . DIRECTED Peripheral IV Insertion Adult [OM.PC] Stat - Assessment/Plan Last 24 Hours: My Active Orders 03/03/20 06:25 EKG Documentation Completion [RC] STAT Peripheral IV Care [RC] . DIRECTED Peripheral IV Insertion Adult [OM.PC] Stat
[2020-03-03 07:14] LABS: ANION GAP 11.5 mEq/L (7-13); CHLORIDE,CL 105 mmol/L (98-107); SODIUM,NA 143 mmol/L (136-145)
== END 2020-03-03 07:41 | disposition home or self-care (01) ==
LOC: DL.ED 06:21
DX: I48.91 Unspecified atrial fibrillation (principal); E78.00 Pure hypercholesterolemia, unspecified; F41.0 Panic disorder [episodic paroxysmal anxiety]; F32.9 Major depressive disorder, single episode, unspecified; E03.9 Hypothyroidism, unspecified; Z88.0 Allergy status to penicillin; Z88.1 Allergy status to other antibiotic agents; Z88.2 Allergy status to sulfonamides; Z88.5 Allergy status to narcotic agent; Z88.8 Allergy status to other drugs, medicaments and biological substances; Z79.01 Long term (current) use of anticoagulants; Z79.899 Other long term (current) drug therapy; Z87.891 Personal history of nicotine dependence; Z86.73 Personal history of transient ischemic attack (TIA), and cerebral infarction without residual deficits
CPT/HCPCS: 36415; 80053; 84443; 84484; 85025; 93005; 99285-25

== ENCOUNTER 2020-06-22 21:50 | Emergency (ER) | payer MEDICARE, BC ==
[2020-06-22 22:01] VITALS: BP 158/42; PULSE 54
--- NOTE | 2020-06-22 22:44 | EDM.PDOC ---
ED HPI GENERAL MEDICAL PROBLEM - General Chief Complaint: Eye Problems Stated Complaint: RIGHT EYE IRRITATION, MOVING DONW FACE Time Seen by Provider: 06/22/20 22:05 Source of Information: Reports: Patient History Limitations: Reports: No Limitations - History of Present Illness INITIAL COMMENTS - FREE TEXT/NARRATIVE: ED with sudden discomfort to outer right eye, redness, No change in vision. On coumadin, chronic afib recent incease two weeks ago. No nausea or vomiting. No cough, mild chronic headache today. Right Eye Pain Score (Numeric/FACES): 2 - Related Data Allergies Allergy/AdvReac Type Severity Reaction Status Date / Time erythromycin base Allergy Unknown unknown Verified 06/22/20 21:56 [Erythromycin Base] indomethacin Allergy Unknown unknown Verified 06/22/20 21:56 Sulfa (Sulfonamide Allergy Unknown unknown Verified 06/22/20 21:56 Antibiotics) sulfamethoxazole Allergy Unknown unknown Verified 06/22/20 21:56 [From Bactrim] trimethoprim [From Bactrim] Allergy Unknown unknown Verified 06/22/20 21:56 aspirin [From Fiorinal] Allergy Cannot Verified 06/22/20 21:56 Remember butalbital [From Fiorinal] Allergy Cannot Verified 06/22/20 21:56 Remember caffeine [From Fiorinal] Allergy Cannot Verified 06/22/20 21:56 Remember celecoxib [From Celebrex] Allergy Shortness Verified 06/22/20 21:56 of Breath fluticasone propionate Allergy Difficulty Verified 06/22/20 21:56 [From Flonase] Breathing infliximab [From Remicade] Allergy Rash Verified 06/22/20 21:57 Penicillins Allergy Hives Verified 06/22/20 21:56 ciprofloxacin [From Cipro] AdvReac Nausea Verified 06/22/20 21:56 ciprofloxacin HCl AdvReac Nausea Verified 06/22/20 21:56 [From Cipro] leflunomide [From Arava] AdvReac Diarrhea Verified 06/22/20 21:56 levofloxacin [From Levaquin] AdvReac Chest Pain Verified 06/22/20 21:56 methotrexate AdvReac Itching Verified 06/22/20 21:56 simvastatin [From Zocor] AdvReac Leg Cramps Verified 06/22/20 21:56 Home Meds: Home Meds Estrogens, Conjugated [Premarin Vaginal Crm] 1 applic VAG .3TIMESWEEK 08/04/13 [History] Levothyroxine Sodium [Synthroid] 0.88 mcg PO DAILY 08/04/13 [History] Warfarin [Coumadin] 5 mg PO DAILY 08/04/13 [History] atorvaSTATin [Lipitor] 20 mg PO BEDTIME 08/04/13 [History] Sertraline [Zoloft] 50 tab PO DAILY 10/29/16 [History] Furosemide [Lasix] 20 mg PO DAILY PRN 07/31/17 [History] diphenhydrAMINE [Benadryl] 25 mg PO Q6H PRN 07/31/17 [History] Calcium Carbonate/Vitamin D3 [Calcium 600 + Vit D 200] 1 tab PO BID 07/24/19 [History] Dextran 70/Hypromellose/PF [Tears Naturale Free Drops] 1 each OP DAILY 07/24/19 [History] predniSONE [Prednisone] 7.5 mg PO DAILY 11/14/19 [History] Metoprolol Succinate [Toprol XL] 25 mg PO DAILY 06/22/20 [History] Past Medical History HEENT History: Reports: Cataract, Impaired Vision, Macular Degeneration, Sinusitis, Other (See Below) Other HEENT History: wears glasses Cardiovascular History: Reports: Afib, Blood Clots/VTE/DVT, High Cholesterol, Other (See Below) 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 THORACIC DISC DISEASE. POLYMYALGIA RHEUMATICA Neurological History: Reports: Migraines, TIA, Vertigo, Other (See Below) Other Neuro History: INSOMNIA Psychiatric History: Reports: Anxiety, Depression, Panic Attack Endocrine/Metabolic History: Reports: Hypothyroidism Hematologic History: Reports: None Immunologic History: Reports: None Oncologic (Cancer) History: Reports: None Dermatologic History: Reports: None - Infectious Disease History Infectious Disease History: Reports: Chicken Pox, Influenza, Measles, Mumps - Past Surgical History Head Surgeries/Procedures: Reports: None HEENT Surgical History: Reports: Cataract Surgery Other HEENT Surgeries/Procedures: Bilateral Cataract Removal Cardiovascular Surgical History: Reports: None GI Surgical History: Reports: Colonoscopy Female Surgical History: Reports: Breast Biopsy, Hysterectomy Other Female Surgeries/Procedures: S/P HYSTERECTOMY PARTIAL VAGINAL, OVARIES REMAIN. LEEP Musculoskeletal Surgical History: Reports: Knee Replacement, Shoulder Surgery, Other (See Below) Other Musculoskeletal Surgeries/Procedures:: REPAIR OF HAMMER TOE X2. Bunionectomy *2 Social & Family History - Family History Family Medical History: Noncontributory HEENT: Reports: Cataract - Tobacco Use Tobacco Use Status *Q: Former Tobacco User Used Tobacco, but Quit: Yes Month/Year Tobacco Last Used: 2001 - Caffeine Use Caffeine Use: Reports: Coffee Caffeine Use Comment: 1 cup daily - Recreational Drug Use Recreational Drug Use: No - Living Situation & Occupation Occupation: Employed ED ROS GENERAL - Review of Systems Review Of Systems: Comprehensive ROS is negative, except as noted in HPI. ED EXAM GENERAL W FULL EYE - Physical Exam Exam: See Below Exam Limited By: No Limitations General Appearance: Alert, Anxious, Mild Distress Eye Exam: Right Eye: Other (lateral subconjectival bleeding), Bilateral Eye: EOMI, Normal Fundi, PERRL Visual Acuity (R) 20/: 40 Visual Acuity (L) 20/: 40 With Correction: No Eyelids: Bilateral: Normal Appearance Conjunctiva & Sclera: Right: Subconjuctival Hemorrhage Cornea Exam: Bilateral: Normal Appearance Extraocular Movements: Bilateral: Intact Pupils: Normal Accommodation Pupillary Size: Bilateral: 3 mm Pupillary Reaction: Bilateral: Brisk Ears: Normal External Exam Nose: Normal Mucosa Throat/Mouth: Normal Lips, Normal Voice Respiratory/Chest: Lungs Clear Cardiovascular: Regular Rate, Rhythm, Other (sl irregular) Extremities: Normal Range of Motion Neurological: Alert, Oriented Skin Exam: Warm, Dry, Intact Course - Vital Signs Last Recorded V/S: Last Vital Signs Temp 96 F L 06/22/20 21:57 Pulse 54 L 06/22/20 21:57 Resp 16 06/22/20 21:57 BP 158/42 H 06/22/20 21:57 Pulse Ox 100 06/22/20 21:57 - Orders/Labs/Meds Labs: Laboratory Tests 06/22/20 06/22/20 06/22/20 Range/Units 22:23 22:23 22:23 WBC 7.4 (5.0-10.0) 10^3/uL RBC 4.20 (4.2-5.4) 10^6/uL Hgb 13.6 (12.0-16.0) g/dL Hct 42.8 (37.0-47.0) % MCV 101.9 H (80-100) fL MCH 32.4 (27.0-34.0) pg MCHC 31.8 L (33.0-35.0) g/dL Plt Count 303 (150-450) 10^3/uL Neut % (Auto) 67.1 (42.2-75.2) % Lymph % (Auto) 18.8 L (20.5-50.1) % [place] % (Auto) 12.8 H (2-8) % Eos % (Auto) 1.0 (1.0-3.0) % Baso % (Auto) 0.3 (0.0-1.0) % Add Manual Diff Yes Neutrophils % (Manual) 64 (42-75) % Band Neutrophils % 3 % Lymphocytes % (Manual) 21 (20-50) % Monocytes % (Manual) 10 H (2-8) % Eosinophils % (Manual) 2 (1-3) % PT 31.4 H D (9.0-12.0) SEC INR 3.4 H (0.9-1.2) Sodium 141 (136-145) mmol/L Potassium 4.2 (3.5-5.1) mmol/L Chloride 105 (98-107) mmol/L Carbon Dioxide 28 (21-32) mmol/L Anion Gap 12.2 (7-13) mEq/L BUN 13 (7-18) mg/dL Creatinine 0.96 (0.55-1.02) mg/dL Est Cr Clr Drug Dosing 43.72 mL/min Estimated GFR (MDRD) 57 BUN/Creatinine Ratio 13.5 (No establ ref range) Glucose 96 (74-99) mg/dL Calcium 8.3 L (8.5-10.1) mg/dL Total Bilirubin 0.5 (0.2-1.0) mg/dL AST 28 (15-37) U/L ALT 33 (14-59) U/L Alkaline Phosphatase 55 (46-116) U/L Total Protein 6.6 (6.4-8.2) g/dL Albumin 3.3 L (3.4-5.0) g/dL Globulin 3.3 Albumin/Globulin Ratio 1.00 Departure - Departure Time of Disposition: 23:07 Disposition: Home, Self-Care 01 Condition: Good Clinical Impression: Subconjunctival hemorrhage of right eye, Chronic anticoagulation - Discharge Information *PRESCRIPTION DRUG MONITORING PROGRAM REVIEWED*: No *COPY OF PRESCRIPTION DRUG MONITORING REPORT IN PATIENT NICOLASA: No Instructions: Subconjunctival Hemorrhage Forms: ED Department Discharge Additional Instructions: follow up with eye clinic this week light activity- no heavy lifting tylenol 500mg every 4 hours as needed for discomfort cool pack as desired Sepsis Event Note (ED) - Evaluation Sepsis Screening Result: No Definite Risk - Focused Exam Vital Signs: Vital Signs Temp Pulse Resp BP Pulse Ox 06/22/20 21:57 96 F L 54 L 16 158/42 H 100
[2020-06-22 22:48] LABS: ANION GAP 12.2 mEq/L (7-13)
== END 2020-06-22 23:13 | disposition home or self-care (01) ==
LOC: DL.ED 21:50
DX: H11.31 Conjunctival hemorrhage, right eye (principal); I48.91 Unspecified atrial fibrillation; E78.00 Pure hypercholesterolemia, unspecified; F41.9 Anxiety disorder, unspecified; F32.9 Major depressive disorder, single episode, unspecified; E03.9 Hypothyroidism, unspecified; Z79.01 Long term (current) use of anticoagulants; Z88.1 Allergy status to other antibiotic agents; Z88.2 Allergy status to sulfonamides; Z88.8 Allergy status to other drugs, medicaments and biological substances; Z88.0 Allergy status to penicillin; Z79.899 Other long term (current) drug therapy; Z86.73 Personal history of transient ischemic attack (TIA), and cerebral infarction without residual deficits; Z87.891 Personal history of nicotine dependence
CPT/HCPCS: 36415; 80053; 85025; 85610; 99283

== ENCOUNTER 2022-08-01 16:41 | Emergency (ER) | payer MEDICARE, BC ==
[2022-08-01] MEDS ORDERED: Sodium Chloride 0.9% 10 ML Syringe FLUSH PRN (17:03)
[2022-08-01 17:21] VITALS: BP 137/77; PULSE 93
[2022-08-01] MEDS ORDERED: Ketorolac 30 MG/ML SDV IVPUSH ONE (17:40)
[2022-08-01] MEDS ORDERED: Sodium Chloride 0.9% 1,000 ML IV ONE (17:40)
[2022-08-01 17:41] LABS: ANION GAP 13.3 mEq/L (7-13); CHLORIDE,CL 104 mmol/L (98-107); SODIUM,NA 140 mmol/L (136-145)
[2022-08-01 17:44] LABS: ESTIMATED GFR 54 mL/min (>=60)
[2022-08-01 18:31] LABS: CORONAVIRUS COVID-19 NAA NEGATIVE (NEGATIVE)
== END 2022-08-01 19:24 | disposition home or self-care (01) ==
LOC: DL.ED 16:41
DX: G44.219 Episodic tension-type headache, not intractable (principal); E78.00 Pure hypercholesterolemia, unspecified; K21.9 Gastro-esophageal reflux disease without esophagitis; E03.9 Hypothyroidism, unspecified; Z86.73 Personal history of transient ischemic attack (TIA), and cerebral infarction without residual deficits; Z88.1 Allergy status to other antibiotic agents; Z88.0 Allergy status to penicillin; Z88.2 Allergy status to sulfonamides; Z88.8 Allergy status to other drugs, medicaments and biological substances; Z79.899 Other long term (current) drug therapy; Z79.82 Long term (current) use of aspirin; Z20.822 Contact with and (suspected) exposure to COVID-19
CPT/HCPCS: 0240U; 36415; 80053; 81001; 83605; 83880; 84484; 85025; 85610; 86140; 93005; 96361; 96374; 99284; J1885; J7030

== ENCOUNTER 2022-09-20 10:39 | Emergency (ER) | payer MEDICARE, BC ==
[2022-09-20] MEDS ORDERED: Sodium Chloride 0.9% 10 ML Syringe FLUSH PRN (10:58)
[2022-09-20 11:34] VITALS: BP 144/82; PULSE 79
[2022-09-20 11:38] LABS: ANION GAP 10.8 mEq/L (7-13)
== END 2022-09-20 13:04 | disposition home or self-care (01) ==
LOC: DL.ED 10:39
DX: I48.91 Unspecified atrial fibrillation (principal); E78.00 Pure hypercholesterolemia, unspecified; K21.9 Gastro-esophageal reflux disease without esophagitis; E03.9 Hypothyroidism, unspecified; Z79.82 Long term (current) use of aspirin; Z79.899 Other long term (current) drug therapy; Z86.73 Personal history of transient ischemic attack (TIA), and cerebral infarction without residual deficits; Z88.2 Allergy status to sulfonamides; Z88.0 Allergy status to penicillin; Z88.1 Allergy status to other antibiotic agents; Z88.8 Allergy status to other drugs, medicaments and biological substances
CPT/HCPCS: 36415; 71046; 80053; 83880; 84484; 85025; 93005; 93010; 99284; 99285; J3490

== ENCOUNTER 2023-09-30 13:56 | Emergency (ER) | payer MEDICARE, BC ==
[2023-09-30] MEDS: Sodium Chloride 0.9% 10 ML Syringe FLUSH PRN (14:09)
[2023-09-30 14:23] LABS: BASOPHILS PERCENT AUTO 0.2 % (0.0-1.0); EOSINOPHILS PERCENT AUTO 1.1 % (1.0-3.0); HEMATOCRIT 46.3 % (37.0-47.0); HEMOGLOBIN 15.1 g/dL (12.0-16.0); LYMPHOCYTES PERCENT AUTO 30.5 % (20.5-50.1); MEAN CORPUSCULAR HEMOGLOBIN 32.8 pg (27.0-34.0); MEAN CORPUSCULAR HGB CONC 32.6 g/dL (33.0-35.0); MEAN CORPUSCULAR VOLUME 100.7 fL (80-100); NEUTROPHILS PERCENT AUTO 59.2 % (42.2-75.2); PLATELET COUNT,PLT 295 10^3/uL (150-450); WHITE BLOOD CELL COUNT,WBC 8.1 10^3/uL (5.0-10.0)
[2023-09-30 14:42] LABS: LACTIC ACID 0.9 mmol/L (0.4-2.0)
[2023-09-30 14:44] LABS: B-TYPE NATRIURETIC PEPTIDE,BNP 216 pg/ml (0-100)
[2023-09-30 14:47] LABS: PROTHROMBIN TIME 9.9 SEC (9.0-12.0)
[2023-09-30 14:56] VITALS: PULSE 86
[2023-09-30] MEDS: GI Cocktail Oral Solution 30 ML PO ONE (15:01)
[2023-09-30 15:02] LABS: A/G RATIO 0.9; ALANINE AMINOTRANSFERASE,ALT 15 U/L (14-59); ALBUMIN 3.9 g/dL (3.4-5.0); ALKALINE PHOSPHATASE 54 U/L (46-116); ANION GAP 12.2 mEq/L (7-13); ASPARTATE AMNIOTRANSFERASE,AST 24 U/L (15-37); BLOOD UREA NITROGEN,BUN 13 mg/dL (7-18); BUN/CREATININE RATIO 15.7 (No establ ref range); CALCIUM 9.3 mg/dL (8.5-10.1); CARBON DIOXIDE,CO2 29 mmol/L (21-32); CHLORIDE,CL 103 mmol/L (98-107); CREATININE 0.83 mg/dL (0.55-1.02); EST CRCL DRUG DOSING (CG) 44.18 mL/min; GLUCOSE RANDOM 110 mg/dL (70-99); MAGNESIUM 2.3 mg/dL (1.8-2.4); POTASSIUM,K 4.2 mmol/L (3.5-5.1); PROTEIN TOTAL,TP 8.2 g/dL (6.4-8.2); SODIUM,NA 140 mmol/L (136-145); TSH ULTRASENSITIVE 0.56 uIU/mL (0.36-3.74)
[2023-09-30 15:09] LABS: C-REACTIVE PROTEIN < 0.50 ng/dL (<=0.50); ESTIMATED GFR 72 mL/min (>=60)
[2023-09-30 15:41] LABS: AMYLASE 54 U/L (25-115); LIPASE 45 U/L (16-77)
[2023-09-30] MEDS: fentaNYL 100 MCG/2 ML SDV IVPUSH ONE (15:41)
[2023-09-30] MEDS: Ondansetron 4 MG/2 ML SDV IVPUSH ONE (15:41)
[2023-09-30 15:46] VITALS: BP 140/84
[2023-09-30] MEDS: Iopamidol 612 MG/ML 100 ML Bottle IVPUSH ONE (16:07)
== END 2023-09-30 17:25 | disposition home or self-care (01) ==
LOC: DL.ED 13:56
DX: R07.89 Other chest pain (principal); R10.13 Epigastric pain; K21.9 Gastro-esophageal reflux disease without esophagitis; E78.00 Pure hypercholesterolemia, unspecified; E03.9 Hypothyroidism, unspecified; Z79.01 Long term (current) use of anticoagulants; Z79.899 Other long term (current) drug therapy; Z88.5 Allergy status to narcotic agent; Z88.6 Allergy status to analgesic agent; Z88.1 Allergy status to other antibiotic agents; Z88.2 Allergy status to sulfonamides; Z88.8 Allergy status to other drugs, medicaments and biological substances
CPT/HCPCS: 36415; 71045; 71260; 74177; 80053; 82150; 83605; 83690; 83735; 83880; 84145; 84443; 84484; 85025; 85610; 85730; 86140; 93005; 93010; 96374; 96375; 99284; 99285-25; A9270-GY; J2405; J3010; J3490; Q9967

== ENCOUNTER 2024-03-31 13:12 | Emergency (ER) | payer MEDICARE, BC ==
[2024-03-31] MEDS ORDERED: Sodium Chloride 0.9% 10 ML Syringe FLUSH PRN (13:29)
[2024-03-31 13:30] VITALS: BP 122/92; PULSE 84
[2024-03-31] MEDS: Iopamidol 755 Mg/ML 100 ML Bottle IVPUSH ONE (13:35)
[2024-03-31 13:39] LABS: BASOPHILS PERCENT AUTO 0.2 % (0.0-1.0); EOSINOPHILS PERCENT AUTO 1.3 % (1.0-3.0); HEMATOCRIT 43.5 % (37.0-47.0); LYMPHOCYTES PERCENT AUTO 29.5 % (20.5-50.1); MEAN CORPUSCULAR HEMOGLOBIN 32.9 pg (27.0-34.0); MEAN CORPUSCULAR HGB CONC 32.2 g/dL (33.0-35.0); MEAN CORPUSCULAR VOLUME 102.4 fL (80-100); MONOCYTES PERCENT AUTO 8.9 % (2-8); NEUTROPHILS PERCENT AUTO 60.1 % (42.2-75.2); PLATELET COUNT,PLT 296 10^3/uL (150-450); RED BLOOD CELL COUNT 4.25 10^6/uL (4.2-5.4); WHITE BLOOD CELL COUNT,WBC 9.8 10^3/uL (5.0-10.0)
[2024-03-31 13:55] LABS: A/G RATIO 0.94; ALBUMIN 3.3 g/dL (3.4-5.0); ANION GAP 12.2 mEq/L (7-13); BILIRUBIN TOTAL 0.8 mg/dL (0.2-1.0); BUN/CREATININE RATIO 21.9 (No establ ref range); CALCIUM 8.8 mg/dL (8.5-10.1); CREATININE 0.96 mg/dL (0.55-1.02); EST CRCL DRUG DOSING (CG) 41.71 mL/min; POTASSIUM,K 4.2 mmol/L (3.5-5.1); PROTEIN TOTAL,TP 6.8 g/dL (6.4-8.2)
[2024-03-31 13:58] LABS: PROTHROMBIN TIME 10.1 SEC (9.0-12.0); PTT,PARTIAL THROMBOPLSTIN TIME 23.3 SEC (22.0-34.0)
== END 2024-03-31 16:20 | disposition home or self-care (01) ==
LOC: DL.ED 13:12
DX: G43.909 Migraine, unspecified, not intractable, without status migrainosus (principal); K21.9 Gastro-esophageal reflux disease without esophagitis; E03.9 Hypothyroidism, unspecified; Z88.0 Allergy status to penicillin; Z88.1 Allergy status to other antibiotic agents; Z88.2 Allergy status to sulfonamides; Z88.8 Allergy status to other drugs, medicaments and biological substances; Z79.82 Long term (current) use of aspirin; Z79.890 Hormone replacement therapy; Z79.899 Other long term (current) drug therapy; Z90.710 Acquired absence of both cervix and uterus
CPT/HCPCS: 36415; 70450; 70496; 70498; 80053; 82947; 84484; 85025; 85610; 85730; 93005; 99285; Q9967

== ENCOUNTER 2024-07-04 12:41 | Emergency (ER) | payer MEDICARE, BC ==
[2024-07-04 13:20] LABS: BASOPHILS PERCENT AUTO 0.1 % (0.0-1.0); HEMATOCRIT 37.9 % (37.0-47.0); HEMOGLOBIN 12.5 g/dL (12.0-16.0); MEAN CORPUSCULAR HEMOGLOBIN 33.6 pg (27.0-34.0); MEAN CORPUSCULAR VOLUME 101.9 fL (80-100); MONOCYTES PERCENT AUTO 5.9 % (2-8); PLATELET COUNT,PLT 290 10^3/uL (150-450); RED BLOOD CELL COUNT 3.72 10^6/uL (4.2-5.4); WHITE BLOOD CELL COUNT,WBC 11.6 10^3/uL (5.0-10.0)
[2024-07-04 13:36] LABS: ANION GAP 9.6 mEq/L (7-13); C-REACTIVE PROTEIN 2.55 ng/dL (<=0.50); CREATININE 0.91 mg/dL (0.55-1.02); EST CRCL DRUG DOSING (CG) 39.65 mL/min; POTASSIUM,K 3.6 mmol/L (3.5-5.1)
[2024-07-04] MEDS: Dexamethasone 4 MG/ML SDV IM ONE (15:17)
[2024-07-04] MEDS: Take Home: Acetaminophen/HYDROcodone 325-5 MG, 5 Tab Pack PO ONE (15:17)
[2024-07-04 16:04] VITALS: BP 128/90; PULSE 91
== END 2024-07-04 15:30 | disposition home or self-care (01) ==
LOC: DL.ED 12:41
DX: R05.1 Acute cough (principal); R09.82 Postnasal drip; M19.90 Unspecified osteoarthritis, unspecified site; E03.9 Hypothyroidism, unspecified; Z86.73 Personal history of transient ischemic attack (TIA), and cerebral infarction without residual deficits; Z86.16 Personal history of COVID-19; Z90.710 Acquired absence of both cervix and uterus; Z88.2 Allergy status to sulfonamides; Z88.1 Allergy status to other antibiotic agents; Z88.8 Allergy status to other drugs, medicaments and biological substances; Z88.6 Allergy status to analgesic agent; Z79.82 Long term (current) use of aspirin; Z79.52 Long term (current) use of systemic steroids; Z79.890 Hormone replacement therapy; Z79.2 Long term (current) use of antibiotics; Z79.891 Long term (current) use of opiate analgesic; Z79.899 Other long term (current) drug therapy
CPT/HCPCS: 36415; 71046; 80048; 85025; 86140; 87081; 87430; 96372; 99283; A9270; J1100

== ENCOUNTER 2024-07-15 11:27 | Emergency (ER) | payer MEDICARE, BC ==
[2024-07-15 11:59] LABS: BASOPHILS PERCENT AUTO 0.3 % (0.0-1.0); EOSINOPHILS PERCENT AUTO 3.3 % (1.0-3.0); HEMATOCRIT 39.5 % (37.0-47.0); HEMOGLOBIN 12.9 g/dL (12.0-16.0); LYMPHOCYTES PERCENT AUTO 35.4 % (20.5-50.1); MEAN CORPUSCULAR HEMOGLOBIN 33.6 pg (27.0-34.0); MEAN CORPUSCULAR HGB CONC 32.7 g/dL (33.0-35.0); MEAN CORPUSCULAR VOLUME 102.9 fL (80-100); MONOCYTES PERCENT AUTO 11.4 % (2-8); NEUTROPHILS PERCENT AUTO 49.6 % (42.2-75.2); PLATELET COUNT,PLT 304 10^3/uL (150-450); RED BLOOD CELL COUNT 3.84 10^6/uL (4.2-5.4); WHITE BLOOD CELL COUNT,WBC 6.4 10^3/uL (5.0-10.0)
[2024-07-15 12:18] LABS: A/G RATIO 0.89; ALANINE AMINOTRANSFERASE,ALT 19 U/L (14-59); ALBUMIN 3.1 g/dL (3.4-5.0); ALKALINE PHOSPHATASE 53 U/L (46-116); ANION GAP 11.4 mEq/L (7-13); ASPARTATE AMNIOTRANSFERASE,AST 22 U/L (15-37); BILIRUBIN TOTAL 0.9 mg/dL (0.2-1.0); BLOOD UREA NITROGEN,BUN 11 mg/dL (7-18); BUN/CREATININE RATIO 10.9 (No establ ref range); CALCIUM 8.9 mg/dL (8.5-10.1); CARBON DIOXIDE,CO2 29 mmol/L (21-32); CHLORIDE,CL 108 mmol/L (98-107); CREATININE 1.01 mg/dL (0.55-1.02); ESTIMATED GFR 57 mL/min (>=60); GLUCOSE RANDOM 91 mg/dL (70-99); MAGNESIUM 2.2 mg/dL (1.8-2.4); POTASSIUM,K 4.4 mmol/L (3.5-5.1); PROTEIN TOTAL,TP 6.6 g/dL (6.4-8.2); SODIUM,NA 144 mmol/L (136-145)
[2024-07-15 12:24] LABS: B-TYPE NATRIURETIC PEPTIDE,BNP 177 pg/ml (0-100)
[2024-07-15 16:38] VITALS: BP 105/72; PULSE 77
== END 2024-07-15 17:20 | disposition home or self-care (01) ==
LOC: DL.ED 11:27
DX: I73.9 Peripheral vascular disease, unspecified (principal); E78.00 Pure hypercholesterolemia, unspecified; E03.9 Hypothyroidism, unspecified; Z86.16 Personal history of COVID-19; Z90.710 Acquired absence of both cervix and uterus; Z86.73 Personal history of transient ischemic attack (TIA), and cerebral infarction without residual deficits; Z88.1 Allergy status to other antibiotic agents; Z88.2 Allergy status to sulfonamides; Z88.0 Allergy status to penicillin; Z88.8 Allergy status to other drugs, medicaments and biological substances; Z79.52 Long term (current) use of systemic steroids; Z79.82 Long term (current) use of aspirin; Z79.890 Hormone replacement therapy; Z79.899 Other long term (current) drug therapy
CPT/HCPCS: 36415; 71045; 73706-LT; 73706-RT; 80053; 83735; 83880; 85025; 85379; 93005; 93971; 99284

== ENCOUNTER 2024-08-02 03:02 | Emergency (ER) | payer MEDICARE, BC ==
[2024-08-02 03:14] VITALS: BP 133/79; PULSE 98
== END 2024-08-02 06:03 | disposition home or self-care (01) ==
LOC: DL.ED 03:02
DX: I82.812 Embolism and thrombosis of superficial veins of left lower extremity (principal); I48.91 Unspecified atrial fibrillation; E78.00 Pure hypercholesterolemia, unspecified; E03.9 Hypothyroidism, unspecified; R58 Hemorrhage, not elsewhere classified; Z86.73 Personal history of transient ischemic attack (TIA), and cerebral infarction without residual deficits; Z87.891 Personal history of nicotine dependence; Z79.899 Other long term (current) drug therapy; Z79.82 Long term (current) use of aspirin; Z88.0 Allergy status to penicillin; Z88.1 Allergy status to other antibiotic agents; Z88.2 Allergy status to sulfonamides; Z88.8 Allergy status to other drugs, medicaments and biological substances
CPT/HCPCS: 73700; 93971; 99284

== ENCOUNTER 2025-05-06 19:13 | Emergency (ER) | payer MEDICARE, BC ==
[2025-05-06 19:30] VITALS: BP 132/58; PULSE 81
[2025-05-06] MEDS: Dexamethasone 4 MG/ML SDV PO ONE (20:00)
== END 2025-05-06 20:07 | disposition home or self-care (01) ==
LOC: DL.ED 19:13
DX: H69.81 Other specified disorders of Eustachian tube, right ear (principal); R59.0 Localized enlarged lymph nodes; I48.91 Unspecified atrial fibrillation; E78.00 Pure hypercholesterolemia, unspecified; K21.9 Gastro-esophageal reflux disease without esophagitis; Z86.73 Personal history of transient ischemic attack (TIA), and cerebral infarction without residual deficits; E03.9 Hypothyroidism, unspecified; Z87.891 Personal history of nicotine dependence; Z88.1 Allergy status to other antibiotic agents; Z88.8 Allergy status to other drugs, medicaments and biological substances; Z88.0 Allergy status to penicillin; Z88.2 Allergy status to sulfonamides; Z79.899 Other long term (current) drug therapy; Z79.82 Long term (current) use of aspirin
CPT/HCPCS: 99283; A9270; J1100